=== PATIENT | female | born 1990 | race Caucasian/White ===

== ENCOUNTER 2016-11-13 18:41 | Emergency (ER) | payer OTHER ==
[2016-11-13] MEDS ORDERED: NS 0.9% 1000 ML* 2,000 ML IV ONE (21:39)
[2016-11-13] MEDS ORDERED: Ondansetron INJ* 2 MG/ML VIAL IV ONE (21:39)
[2016-11-13 22:00] LABS: Hematocrit 39 % (35-47); Hemoglobin 12.8 g/dl (12.0-16.0); Mean Corpuscular HGB Conc 33 g/dl (31-36); Mean Corpuscular Hemoglobin 29 pg (27-31); Mean Corpuscular Volume 87 fL (80-97); Mean Platelet Volume 8 um3 (7.4-10.4); Red Blood Count 4.44 10^6/ul (4.0-5.4); Red Cell Distribution Width 15 % (10.5-15); White Blood Count 7.1 10^3/ul (3.5-10.8)
[2016-11-13] MEDS ORDERED: Ketorolac INJ* 30 MG/ML 1 ML VIAL IV PUSH ONE (22:15)
[2016-11-13] MEDS ORDERED: Acetaminophen TAB* 325 MG PO ONE (22:15)
[2016-11-13 22:16] LABS: Calcium 8.1 mg/dL (8.6-10.3); EGFR African American 98.6 (>60); EGFR Non-African American 76.7 (>60); Potassium 3.1 mmol/L (3.5-5.0)
[2016-11-13] MEDS ORDERED: Potassium Chlor TAB* 20 MEQ TAB.ER PO ONE (23:07)
[2016-11-13 23:12] LABS: Body Fluid Appearance Clear
[2016-11-13 23:14] LABS: BF RBC Count #1 2; BF WBC Count #1 3
[2016-11-13 23:16] LABS: BF RBC Count #2 2; BF WBC Count #2 4; Body Fluid Appearance Clear; RBC counts within 6%? Yes; WBC counts within 15%? Yes
[2016-11-13 23:19] LABS: BF RBC Count #1 0; BF WBC Count #1 2
[2016-11-13 23:21] LABS: BF RBC Count #2 0; BF WBC Count #2 0; RBC counts within 6%? Yes; WBC counts within 15%? Yes
[2016-11-13 23:22] LABS: Body Fluid WBC 4 /mcL
[2016-11-13 23:23] LABS: Body Fluid Total Cells Counted 4
[2016-11-13 23:24] LABS: Body Fluid WBC 1 /mcL
[2016-11-13 23:25] LABS: Body Fluid Total Cells Counted 1
[2016-11-13 23:42] LABS: CSF Glucose 72 mg/dL (40-70)
[2016-11-14 00:50] VITALS: BP 94/69
--- NOTE | 2016-11-19 07:46 | ED ---
Jayne Junior Michael, scribed for Sean Esteves MD on 11/13/16 at 2222 . GI/ HPI - HPI Summary HPI Summary: 26 y/o female comes to the ED presenting with n/v/d this 1000 this morning. The pt reports a constant hour of vomiting this morning, and then the diarrhea started. She also c/o SHIELDS that radiates to the neck and lower back and a fever of 102 [employer]. Currently the fever is 100.8 since arriving to the ED. The neck pain is aggravated with head movement. The SHIELDS is rated a 9 out of 10 on a pain severity scale. The pt denies cough, sore throat, nasal discharge, CP, and SOB. The PMHx is significant for asthma. - History of Current Complaint Chief Complaint: EDNauseaVomitDiarrh Time Seen by Provider: 11/13/16 21:38 Stated Complaint: VOMITING/DIARRHEA/HEADACHE Hx Obtained From: Patient, Medical Records Onset/Duration: Started Hours Ago, Still Present Timing: Intermittent Severity: Moderate Current Severity: Moderate Pain Intensity: 8 - SHIELDS Associated Signs and Symptoms: Positive: Negative - cough, sore throat, nasal discharge, CP, and SOB., Back Pain, Nausea, Vomiting, Diarrhea, Fever, Other: - neck pain. SHIELDS. - Allergy/Home Medications Allergies/Adverse Reactions: Allergies Allergy/AdvReac Type Severity Reaction Status Date / Time Cephalexin [From Keflex] Allergy Mild Hives Verified 08/28/16 11:11 Meperidine [From Demerol HCl] Allergy Mild Hives Verified 08/28/16 11:11 PMH/Surg Hx/FS Hx/Imm Hx Endocrine/Hematology History: Denies: Hx Anticoagulant Therapy, Hx Diabetes, Hx Thyroid Disease Cardiovascular History: Denies: Hx Hypertension, Hx Pacemaker/ICD Respiratory History: Reports: Hx Asthma Denies: Hx Chronic Obstructive Pulmonary Disease (COPD) History: Denies: Hx Renal Disease Sensory History: Denies: Hx Hearing Aid Neurological History: Denies: Hx Dementia, Hx Seizures, Other Neuro Impairments/Disorders Psychiatric History: Denies: Hx Panic Disorder, Hx Substance Abuse - Surgical History Surgery Procedure, Year, and Place: T&A,2 LEFT ANKLE TO REPAIR TENDON, 1 RIGHT ANKLE TO REPAIR TENDON, CYST REMOVED FROM [facility] Infectious Disease History: No Infectious Disease History: Denies: Hx Clostridium Difficile, Hx Hepatitis, Hx Human Immunodeficiency Virus (HIV), Traveled Outside the [place] in Last 30 Days - Family History Known Family History: Positive: None Family History: Pt denies a significant FHx - Social History Occupation: Employed Full-time Lives: Alone Alcohol Use: None Substance Use Type: Reports: None Smoking Status (MU): Never Smoked Tobacco Have You Smoked in the Last Year: No Review of Systems Positive: Fever. Negative: Chills Negative: Erythema Negative: Sore Throat Negative: Chest Pain Negative: Shortness Of Breath, Cough Positive: Abdominal Pain, Vomiting, Diarrhea, Nausea Negative: dysuria, hematuria Positive: Other - back pain. neck pain.. Negative: Myalgia, Edema - bilat LE Negative: Rash Positive: Headache All Other Systems Reviewed And Are Negative: Yes Physical Exam - Summary Physical Exam Summary: Constitutional: Well-developed, Well-nourished, Alert. (-) Distressed Skin: Warm, Dry HENT: Normocephalic; Atraumatic, dry oral mucosa Eyes: Conjunctiva normal Neck: Musculoskeletal ROM normal neck. (-) JVD, (-) Stridor, (-) Tracheal deviation Cardio: Rhythm regular, rate normal, Heart sounds normal; Intact distal pulses; The pedal pulses are 2+ and symmetric. Radial pulses are 2+ and symmetric. (-) Murmur Pulmonary/Chest wall: Effort normal. (-) Respiratory distress, (-) Wheezes, (-) Rales Abd: Soft, epigastric tenderness, (-) Distension, (-) Guarding, (-) Rebound Musculoskeletal: (-) Edema Lymph: (-) Cervical adenopathy Neuro: Alert, Oriented x3 Psych: Mood and affect Normal mild meningismus Triage Information Reviewed: Yes Vital Signs On Initial Exam: Initial Vitals Temp Pulse Resp BP Pulse Ox 100.8 F 118 18 115/68 99 11/13/16 19:23 11/13/16 19:23 11/13/16 19:23 11/13/16 19:23 11/13/16 19:23 Vital Signs Reviewed: Yes Procedures - Lumbar Puncture Procedural Sedation: none Position: Lateral Decubitus Aseptic Technique: Lidocaine Anesthesia Used: 1.0% Lido Spinal Needle Used: 22 Gauge - 3.5 inch Lumbar Puncture Note: One attempt-clear fluid obtained. opening pressure was 17 cm. Diagnostics - Vital Signs Vital Signs Temp Pulse Resp BP Pulse Ox 11/13/16 19:23 100.8 F 118 18 115/68 99 - Laboratory Result Diagrams: 11/13/16 21:50 11/13/16 21:50 Lab Statement: Any lab studies that have been ordered have been reviewed, and results considered in the medical decision making process. GIGU Course/Dx - Course Course Of Treatment: 26 y/o female comes to the ED presenting with n/v/d this 1000 this morning. She also c/o fever, SHIELDS, neck pain, and back pain. Pt was consulted with possible side effects of a LP and she agrees to the procedure. - Diagnoses Provider Diagnoses: Gastroenteritis, Dehydration Discharge - Discharge Plan Condition: Improved Disposition: HOME Prescriptions: Ondansetron ODT TAB* [Zofran Odt TAB*] 4 mg PO Q8H PRN #15 tab.odt PRN Reason: Nausea/Vomiting Potassium Chlor TAB* [Potassium Chlor TAB 20 MEQ*] 20 meq PO BID #8 tab.er Patient Education Materials: Dehydration (ED), Gastroenteritis (ED) Forms: *Work Release Referrals: Channing MORE,Yemi Crawford [Primary Care Provider] - Additional Instructions: you will follow up with Dr. Snell within the next 2-3 days. Please return to the ED immediately if you experience any worsening symptoms. The documentation as recorded by the Jayne ellis Michael accurately reflects the service I personally performed and the decisions made by me, Sean Esteves MD.
== END 2016-11-14 00:48 | disposition home or self-care (01) ==
LOC: ED 18:41
DX: E86.0 Dehydration (principal); K52.9 Noninfective gastroenteritis and colitis, unspecified; R19.7 Diarrhea, unspecified; R51 Headache; R50.9 Fever, unspecified; M54.9 Dorsalgia, unspecified
CPT/HCPCS: 36415; 80048; 82945; 84157; 85027; 87070; 87205; 89051; 96361; 96374; 96375; 99283; A9270-GY; J1885; J2405

== ENCOUNTER 2017-09-01 06:34 | Emergency (ER) | payer SELFPAY ==
--- NOTE | 2017-09-01 08:25 | RAD ---
INDICATION: Left shoulder pain. TECHNIQUE: 4 views of the left shoulder were obtained. FINDINGS: The bones are in normal alignment. No fracture is seen. Joint spaces appear maintained. There is a large calcific deposit adjacent to the superior lateral aspect of the lateral head suggestive of calcific tendinitis. IMPRESSION: FINDINGS SUGGESTIVE OF CALCIFIC TENDINITIS.
[2017-09-01] MEDS ORDERED: Ketorolac INJ* 60 MG/2 ML VIAL IM ONE (08:43)
[2017-09-01 09:53] VITALS: BP 118/86
--- NOTE | 2017-09-01 18:40 | ED ---
Lino Junior Angela, scribed for Turner Mcnair MD on 09/01/17 at 0749 . Upper Extremity Pain - HPI Summary HPI Summary: This pt is a 27 y/[facility] pain s/p injury at work today. 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 Pt notes that the client started falling and pulled her left shoulder. Her pain is aggravated with movement. She denies weakness, numbness or tingling in UE. - History of Current Complaint Chief Complaint: EDShoulderClavicBernardo Stated Complaint: LEFT SHOULDER INJURY/PAIN Time Seen by Provider: 09/01/17 07:23 Hx Obtained From: Patient Hx Last Menstrual Period: 04/01/16 Mechanism Of Injury: Other - pulled arm Onset/Duration: Started Hours Ago, Still Present Timing: Lasting Hours Pain Location: Shoulder - left Aggravating Factor(s): Movement Alleviating Factor(s): Nothing Associated Signs & Symptoms: Negative: Weakness, Numbness/Tingling - Allergies/Home Medications Allergies/Adverse Reactions: Allergies Allergy/AdvReac Type Severity Reaction Status Date / Time Cephalexin [From Keflex] Allergy Mild Hives Verified 09/01/17 06:46 Meperidine [From Demerol HCl] Allergy Mild Hives Verified 09/01/17 06:46 PMH/Surg Hx/FS Hx/Imm Hx Endocrine/Hematology History: Denies: Hx Anticoagulant Therapy, Hx Diabetes, Hx Thyroid Disease Cardiovascular History: Denies: Hx Hypertension, Hx Pacemaker/ICD Respiratory History: Reports: Hx Asthma Denies: Hx Chronic Obstructive Pulmonary Disease (COPD) History: Denies: Hx Renal Disease Sensory History: Denies: Hx Hearing Aid Neurological History: Denies: Hx Dementia, Hx Seizures, Other Neuro Impairments/Disorders Psychiatric History: Denies: Hx Panic Disorder, Hx Substance Abuse - Surgical History Surgery Procedure, Year, and Place: T&A,2 LEFT ANKLE TO REPAIR TENDON, 1 RIGHT ANKLE TO REPAIR TENDON, CYST REMOVED FROM [facility] - Immunization History Date of Tetanus Vaccine: unk Date of Influenza Vaccine: 11/06/16 Infectious Disease History: No Infectious Disease History: Denies: Hx Clostridium Difficile, Hx Hepatitis, Hx Human Immunodeficiency Virus (HIV), Traveled Outside the US in Last 30 Days - Family History Family History: Pt denies a significant FHx - Social History Alcohol Use: None Substance Use Type: Reports: None Smoking Status (MU): Never Smoked Tobacco Have You Smoked in the Last Year: No Review of Systems Negative: Fever, Chills Eyes: Negative ENT: Negative Cardiovascular: Negative Respiratory: Negative Positive: Other - left shoulder pain Negative: Weakness, Paresthesia, Numbness All Other Systems Reviewed And Are Negative: Yes Physical Exam - Summary Physical Exam Summary: VITAL SIGNS: Reviewed. GENERAL: Patient is a well-developed and nourished female who is lying comfortable in the stretcher. Patient is not in any acute respiratory distress. HEAD AND FACE: No signs of trauma. No ecchymosis, hematomas or skull depressions. No sinus tenderness. EYES: PERRLA, EOMI x 2, No injected conjunctiva, no nystagmus. EARS: Hearing grossly intact. Ear canals and tympanic membranes are within normal limits. MOUTH: Oropharynx within normal limits. NECK: Supple, trachea is midline, no adenopathy, no JVD, no carotid bruit, no c- spine tenderness, neck with full ROM. CHEST: Symmetric, no tenderness at palpation LUNGS: Clear to auscultation bilaterally. No wheezing or crackles. CVS: Regular rate and rhythm, S1 and S2 present, no murmurs or gallops appreciated. ABDOMEN: Soft, non-tender. No signs of distention. No rebound no guarding, and no masses palpated. Bowel sounds are normal. EXTREMITIES: FROM in all major joints, no edema, no cyanosis or clubbing. There is no ecchymosis, no deformities and no hematomas. There is positive decreased ROM at left shoulder secondary to pain. NEURO: Alert and oriented x 3. No acute neurological deficits. Speech is normal and follows commands. SKIN: Dry and warm Triage Information Reviewed: Yes Vital Signs On Initial Exam: Initial Vitals Temp Pulse Resp BP Pulse Ox 98.4 F 85 16 132/82 98 09/01/17 06:41 09/01/17 06:41 09/01/17 06:41 09/01/17 06:41 09/01/17 06:41 Vital Signs Reviewed: Yes - Joshua Coma Scale Coma Scale Total: 15 Diagnostics - Vital Signs Vital Signs Temp Pulse Resp BP Pulse Ox 09/01/17 06:41 98.4 F 85 16 132/82 98 - Laboratory Lab Statement: Any lab studies that have been ordered have been reviewed, and results considered in the medical decision making process. - Radiology Left shoulder XR Xray Interpretation: Positive (See Comments) - IMPRESSION: Findings suggestive of calcific tendinitis. ED physician has reviewed this radiology report and agrees. Radiology Interpretation Completed By: Radiologist Re-Evaluation - Re-Evaluation First Eval Re-Evaluation Time: 09:35 Comment: I reviewed the XR results with the pt. She would like a work note. Course/Dx - Course Assessment/Plan: This pt is a 27 y/o female presenting to [facility] c/o left shoulder pain s/p injury at work today. 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 Pt notes that the client started falling and pulled her left shoulder. Her pain is aggravated with movement. She denies weakness, numbness or tingling in UE. XR of the right shoulder shows findings suggestive of calcific tendinitis. In the ED course, the pt was given Toradol for the pain. She will be discharged with follow up from her PCP and prescription for naproxen. Pt is hemodynamically stable, alert and oriented x3. - Diagnoses Differential Diagnosis/HQI/PQRI: Positive: Bursitis, Contusion, Fracture (Closed ), Strain, Sprain Provider Diagnoses: Calcific tendinitis of shoulder Discharge - Discharge Plan Condition: Stable Disposition: HOME Prescriptions: Naproxen [Naproxen 500 mg] 500 mg PO Q8H PRN #20 tab PRN Reason: Pain Patient Education Materials: Tendinitis (ED) Forms: *Work Release Referrals: Channing MORE,Yemi Crawford [Primary Care Provider] - Additional Instructions: Please follow up with your primary care provider. RETURN TO THE ED FOR ANY WORSENING SYMPTOMS. The documentation as recorded by the Lino ellis Angela accurately reflects the service I personally performed and the decisions made by me, Turner Mcnair MD.
== END 2017-09-01 09:52 | disposition home or self-care (01) ==
LOC: ED 06:34
DX: M75.32 Calcific tendinitis of left shoulder (principal); M25.512 Pain in left shoulder
CPT/HCPCS: 99282; J1885

== ENCOUNTER → 2018-01-08 08:39 | Day surgery (SDC) | payer OTHER ==
[~2018-01-08 08:39] MED LIST: Buffered Lidocaine 0.9% SYRIN* 5 ML/SYR SYRINGE INTRADERM ONE; Bupivacaine 0.5% SDV PF* 10-30ML VIAL ONE; Clindamycin 900 MG IVPREMIX(* 900 MG/50 ML SDV IV ONE; Dexamethasone IV* 4 MG/ML 1 ML (4 MG) ONE; DiMENhydriNATE IV* 50 MG/ML VIAL ONE; EPINEPHRINE 1 MG/ML 1 ML VIAL ONE; Ketorolac INJ* 30 MG/ML 1 ML VIAL IV PRN; Lidocaine 2% PF * 5 ML VIAL ONE; Midazolam* 1 MG/ML 2 ML VIAL (2 MG) ONE; Naloxone* 0.4 MG/ML 1 ML VIAL IV PRN; Ondansetron INJ* 2 MG/ML VIAL IV PRN; Ondansetron INJ* 2 MG/ML VIAL ONE; Propofol* 10 MG/ML 20 ML BTL IV PUSH ONE; ROPIVACAINE 5 MG/ML 30 ML BTL (0.5%) ONE; Sodium Citrate/Citric Acid* 15 ML UDC ONE; Sodium Citrate/Citric Acid* 15 ML UDC PO ONE; ceFAZolin 2 GM in 100 MLS NS (*) BAG IVPB ONE; fentaNYL* 50 MCG/ML 2 ML VIAL (100 MCG VIAL) IV PRN; fentaNYL* 50 MCG/ML 2 ML VIAL (100 MCG VIAL) ONE
--- NOTE | 2018-01-08 17:30 | RAD ---
Indication: Left shoulder pain. 2 views of left shoulder demonstrates no fracture. No other bone or joint abnormality is noted. IMPRESSION: No fracture of the left shoulder is noted.
[2018-01-08 18:53] VITALS: BP 132/86
--- NOTE | 2018-01-09 07:40 | RAD ---
INDICATION: Calcific tendinitis of left shoulder COMPARISONS: January 18, 2018 TECHNIQUE: Fluoroscopy was provided for a surgical procedure. Total fluoroscopy time is: 23 seconds FINDINGS: Spot images are submitted of the humeral head in an axillary projection IMPRESSION: FLUOROSCOPY WAS PROVIDED FOR A SURGICAL PROCEDURE CPT II Codes: 6045F
--- NOTE | 2018-01-10 00:48 | OP ---
DATE OF OPERATION: 01/08/18 - [facility] DATE OF : 89 SURGEON: Homer Romero MD LIBRARY SCIENCE INSTRUCTOR: LINWOOD Barajas. A physician school health assistant was required for the length of the procedure for positioning, retraction, instrumentation, and closure. ANESTHESIOLOGIST: Korey Forde DO ANESTHESIA: General anesthesia, regional anesthesia, interscalene block, local anesthesia, approximately 10 cc of Marcaine 0.5% without epinephrine about the biceps open skin incision site. PRE-OP DIAGNOSES: 1. Left shoulder calcific rotator cuff tendonitis. 2. Possible left shoulder superior labral tear. POST-OP DIAGNOSES: 1. Left shoulder calcific rotator cuff tendonitis versus avulsion fracture, rotator cuff tendon tear, supraspinatus. 2. Left shoulder superior labral tear, unstable. OPERATIVE PROCEDURES: 1. Left shoulder arthroscopic rotator cuff repair, supraspinatus, high-grade partial thickness bursal side supraspinatus. 2. Left shoulder arthroscopic removal of calcification within supraspinatus tendon. 3. Left shoulder limited debridement arthroscopic including release of biceps tendon. 4. Left shoulder open proximal biceps tenodesis, subpectoral. ANTIBIOTICS: Clindamycin 900 mg IV. IV FLUIDS: 1400 cc crystalloid. COMPLICATIONS: None. SPECIMEN: None. IMPLANTS: Gryphon 5.5 mm anchor, triple loaded, from [employer]. Arthrex proximal biceps button, unicortical. ESTIMATED BLOOD LOSS: Minimal. 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 The patient was diagnosed by me in clinic as having calcific rotator cuff tendonitis. She was treated with a subacromial cortisone injection, Medrol Dosepak. Her exam also worried me for a possible posterolabral tear. The patient tried to return to work on 12/02/17; but at the end of shift, could barely lift her arm. I next treated her with another Medrol Dosepak and another excuse from work note. The patient's symptoms were significant in preventing her from working. MRI preoperatively showed a large calcification within the supraspinatus tendon distally. Sagittal slices also demonstrated a little defect in the humeral head. So, this could conceivably have been a bony avulsion fracture, pulled off by a partial-thickness rotator cuff, supraspinatus. However, the presumptive diagnosis was calcific rotator cuff tendonitis. MRI also showed possible superior labrum tear. No posterior labrum tear by MRI. The patient decided on surgery having failed nonoperative management. I discussed risks and potential complications with the patient including bleeding , infection, nerve or blood vessel injury, shoulder stiffness, pain, rotator cuff tear, retear. DESCRIPTION OF PROCEDURE: Preoperatively, in preoperative holding, the patient signed a written consent. Operative extremity was marked in preoperative holding. Anesthesiologist came in and performed an interscalene regional nerve block. The patient had described some difficulties with Betadine and ChloraPrep in the past, but they were all skin reactions, localized only to the location that those agents were used over and presenting a day or so after, so we did not believe these to be true systemic allergic reaction and we decided to use ChloraPrep. The patient was taken to the operating room and placed supine on the operating room table. General anesthesia was induced. The patient was then converted to the left lateral decubitus position. Axillary roll. All bony prominences padded. A beanbag was hardened. Left arm placed in the appropriate longitudinal traction, abduction, forward flexion, with 15 pounds of traction. The left shoulder was prepped and draped. Surgical time-out was performed. The left shoulder glenohumeral joint was entered from posterior with a spinal needle. A 30 cc of normal saline were infused. The glenohumeral joint was then entered from posterior with an arthroscope. I did a diagnostic arthroscopy or started one. No undersurface supraspinatus tear. No subscapularis or infraspinatus tears visible. Long head of biceps tendon looked normal. There was a question of a superior labral tear. No anterior or posterior labral tear. No articular cartilage defects of the glenoid or humeral head. Anterior glenohumeral joint portal was established under direct visualization. Arthroscopic probe was entered and was used to probe the superior labrum as well as the biceps. There appeared to be a clear superior labral tear with some lift-off of 5 mm of the superior labrum. The decision was therefore made to treat the superior labrum with an open biceps tenodesis. The patient and I preoperatively had discussed either biceps release or open biceps tenodesis. She left the decision to me and I decided given the patient' s young age to tenodesis. Arthroscopic scissors were used to cut the biceps near its origin. Arthroscopic shaver was used to smooth out the superior labrum. The superior labrum tissue was not flopping into the joint and no requirement was there to place a suture anchor. I exited the glenohumeral joint and entered the subacromial space from posterior and anterior. I created a lateral subacromial portal under direct visualization. I debrided some bursitis in the subacromial space using arthroscopic shaver. I visualized the rotator cuff from posterior and then from a newly established posterolateral portal as well as from the lateral portal. Initially, no significant defect on the bursal side of the rotator cuff was appreciated. I likely probed the tissue with an arthroscopic probe and there did seem to be clearly some diseased tissue and some small amount of tearing in the supraspinatus, mid portion. I simply used that arthroscopic probe as well as a switching stick to likely probe inside of the supraspinatus tendon. The arthroscopic probe encountered a clear hard bodies, likely calcifications. As well, when I did the probing, wisps of calcification were exiting the tendon, consistent with a calcification present in rotator cuff calcific tendonitis. There was a clearly more palpable hard bodies within the supraspinatus that were no able to be evacuated with this probing and with an arthroscopic shaver presented along the superior border at the supraspinatus tendon. Therefore, I opened the supraspinatus tendon using an 11 blade, entered through the posterolateral portal, and I incised in line with the fibers of the supraspinatus, very careful. This allowed better exposure of the mid substance of the supraspinatus where much calcification was present. This was removed using arthroscopic problem, switching stick, arthroscopic shaver. When the calcification was removed, there was clearly a high grade defect in the supraspinatus. This was clearly greater than 33% of the width at the tendon, a commonly used indication, guiding line for rotator cuff repair. I, therefore, had decided to do a rotator cuff repair. It did not seem that there are any additional calcifications that were present within the tendon despite my probing throughout. Therefore, I next prepared the footprint with an arthroscopic philippe to create a nice bony healing site. Through a superolateral portal, I placed a triple-loaded 5.5 mm Mitek Gryphon suture anchor. I completed the tear with an arthroscopic shaver just towards the middle most mid point of the partial-thickness tear to aid in repair. I placed 3 horizontal mattress stitches using a [place]ha and [employer] self retrieving suture passer. I passed all sutures before time. With movement of the humerus in rotation and with probing with my arthroscopic probe, the repair appeared stable. Therefore, I decided that a lateral row anchor was not required. I viewed the repair from several different portals. Given the patient's young age and lack of significant sprain, I had preoperatively decided not to do a subacromial decompression or distal clavicle resection and nothing convinced me otherwise intraoperatively. I removed instruments and fluid from the subacromial space. We next closed the incision sites with [id number] and 12 stitches using nylon 4-0 suture. The beanbag was softened and the patient was converted to a supine position. Anesthesia watched the head and neck closely. Beanbag was reinflated with the patient in the supine position. I made a short longitudinal incision over the proximal anteromedial upper arm, approximately 4 cm in length. This was centered just distal to the inferior aspect of the pectoralis major tendon. I dissected down to that tendon and followed it to the bicipital groove. Retractors placed. Long head of the biceps tendon harvested. Pin placed in bone. Appropriate site of tenodesis marked on the tendon with a marking pen. Three stitches placed in the biceps tendon with FiberLoop suture. Button was loaded and then passed into the humerus. Knot tied. A free needle was used to pass another suture through the tendon and another knot tied. Excess suture cut. Excess tendon cut. Irrigation. Closure of the subcutaneous tissue with buried simple stitches using Vicryl 3-0 suture. Closure of the subcuticular layer with a running stitch using Monocryl 4-0 suture. Mastisol and Steri-Strips over the biceps incision site. Also, 10 cc of 0.5% Marcaine about that incision site. Xeroform over the arthroscopic skin incisions. 4x4s, ABDs. Foam tape. UltraSling and Akila unit provided. DISPOSITION: The patient was discharged home. She will follow up with me in the office in 10 to 14 days post-operatively. She will start physical therapy immediately. She was given Percocet as needed for pain control and Bactrim for infection prophylaxis. [id number]/[facility] #: [id number] [facility]
== END | disposition home or self-care (01) ==
LOC: OR 08:39
PROVIDERS: ATTEND Orthopaedic Surgery
DX: M75.112 Incomplete rotator cuff tear or rupture of left shoulder, not specified as traumatic (principal); S43.492A Other sprain of left shoulder joint, initial encounter; M75.32 Calcific tendinitis of left shoulder; X58.XXXA Exposure to other specified factors, initial encounter; Y93.89 Activity, other specified; Y92.129 Unspecified place in nursing home as the place of occurrence of the external cause; Y99.0 Civilian activity done for income or pay; J45.909 Unspecified asthma, uncomplicated; Z87.891 Personal history of nicotine dependence; G89.18 Other acute postprocedural pain
CPT/HCPCS: 76000; 81025; A9270-GY; C1776; J1100; J1240; J2250; J2405; J2704; J2795; J3010

== ENCOUNTER 2018-02-13 04:09 | Emergency (ER) | payer OTHER ==
[2018-02-13] MEDS ORDERED: Ketorolac INJ* 30 MG/ML 1 ML VIAL IV PUSH ONE (04:14)
[2018-02-13] MEDS ORDERED: predniSONE TAB* 20 MG PO ONE (04:14)
[2018-02-13] MEDS ORDERED: NS 0.9% 1000 ML* 1,000 ML IV ONE ×2 (04:14→04:15)
[2018-02-13 04:54] LABS: ABS Basophils 0 10^3/ul (0-0.2); ABS Eosinophils 0.1 10^3/ul (0-0.6); ABS Lymphocytes 1.3 10^3/ul (1.0-4.8); ABS Monocytes 0.8 10^3/ul (0-0.8); ABS Neutrophils 6.6 10^3/ul (1.5-7.7); ABS Nucleated RBC 0 10^3/ul; Eosinophil % 0.6 % (0-6); Hematocrit 37 % (35-47); Hemoglobin 12.6 g/dl (12.0-16.0); Lymphocyte % 14.3 % (25-47); Mean Corpuscular HGB Conc 34 g/dl (31-36); Mean Corpuscular Hemoglobin 31 pg (27-31); Mean Corpuscular Volume 89 fL (80-97); Nucleated Red Blood Cells % 0; Platelet Count 331 10^3/ul (150-450); Red Blood Count 4.11 10^6/ul (4.0-5.4); Red Cell Distribution Width 14 % (10.5-15); White Blood Count 8.8 10^3/ul (3.5-10.8)
[2018-02-13 05:13] LABS: EGFR Non-African American 92.7 (>60)
[2018-02-13] MEDS ORDERED: Acetaminophen TAB* 325 MG PO ONE (06:16)
[2018-02-13] MEDS ORDERED: Iohexol 350* (CONTRAST) 500 ML MDV IV ONE (06:16)
[2018-02-13 06:33] LABS: Urine Appearance Cloudy; Urine Blood Negative (Negative); Urine Color Yellow; Urine Ketones Negative (Negative); Urine Protein Negative (Negative); Urine Specific Gravity 1.021 (1.010-1.030); Urine Urobilinogen Negative (Negative)
--- NOTE | 2018-02-13 07:06 | ED ---
Juaquin Junior Tecjoon, scribed for Markos Kothari MD on 02/13/18 at 0422 . Shortness of Breath - HPI Summary HPI Summary: This patient is a 27 year old female BIBA to [facility] with a chief complaint of dyspnea since approx. 24 hours ago. The pain is rated 4/10 in severity. Symptoms aggravated by nothing. Symptoms alleviated by nothing. Patient additionally reports fever, chills, chest pain, cough. Patient states that she feels slightly better and wheezing went away after EMS breathing treatment. Patient states she received her flu shot this year. - History of Current Complaint Chief Complaint: EDShortnessOfBreath Time Seen by Provider: 02/13/18 04:13 Hx Obtained From: Patient Onset/Duration: Still Present Dyspnea At: Rest Aggrevating Factors: Nothing Alleviating Factors: Nothing - Allergy/Home Medications Allergies/Adverse Reactions: Allergies Allergy/AdvReac Type Severity Reaction Status Date / Time povidone-iodine Allergy Intermediate Hives Verified 02/13/18 05:27 cephalexin Allergy Mild Hives Verified 02/13/18 05:27 meperidine Allergy Mild Hives Verified 02/13/18 05:27 PMH/Surg Hx/FS Hx/Imm Hx Previously Healthy: Yes Endocrine/Hematology History: Denies: Hx Anticoagulant Therapy, Hx Diabetes, Hx Thyroid Disease Cardiovascular History: Denies: Hx Hypertension, Hx Pacemaker/ICD Respiratory History: Reports: Hx Asthma - sports induced Denies: Hx Chronic Obstructive Pulmonary Disease (COPD) History: Denies: Hx Renal Disease Sensory History: Denies: Hx Contacts or Glasses, Hx Hearing Aid Opthamlomology History: Denies: Hx Contacts or Glasses Neurological History: Reports: Hx Migraine - hx of- last one 6 months ago Denies: Hx Dementia, Hx Seizures, Other Neuro Impairments/Disorders Psychiatric History: Denies: Hx Panic Disorder, Hx Substance Abuse - Cancer History Hx Chemotherapy: No - Surgical History Surgery Procedure, Year, and Place: T&A,2 LEFT ANKLE TO REPAIR TENDON, 1 RIGHT ANKLE TO REPAIR TENDON, CYST REMOVED FROM CHIN. TUBAL LIGATION-ABLASION- APPENDIX 12/2016 Hx Anesthesia Reactions: No - Immunization History Date of Tetanus Vaccine: unk Date of Influenza Vaccine: 11/06/16 Infectious Disease History: No Infectious Disease History: Denies: Hx Clostridium Difficile, Hx Hepatitis, Hx Human Immunodeficiency Virus (HIV), Traveled Outside the [place] in Last 30 Days - Family History Known Family History: Negative: Hypertension - Social History Occupation: Employed Full-time Alcohol Use: None Hx Substance Use: No Substance Use Type: Reports: None Hx Tobacco Use: Yes Smoking Status (MU): Former Smoker Amount Used/How Often: smoked for 2-3 years 1/2ppd Have You Smoked in the Last Year: No Review of Systems Positive: Fever, Chills Positive: Chest Pain Positive: Shortness Of Breath, Cough All Other Systems Reviewed And Are Negative: Yes Physical Exam - Summary Physical Exam Summary: Appearance: Well appearing, no pain distress Skin: warm, dry, reflects adequate perfusion Head/face: normal Eyes: EOMI, DMITRI ENT: clear nasal discharge Neck: supple, non-tender Respiratory: CTA, breath sounds present Cardiovascular: heart tachycardic, but regular Abdomen: non-tender, soft Bowel Sounds: present Musculoskeletal: normal, strength/ROM intact Neuro: normal, sensory motor intact, A&Ox3 Triage Information Reviewed: Yes Vital Signs On Initial Exam: Initial Vitals Temp Pulse Resp BP Pulse Ox 101.8 F 138 18 94/73 100 02/13/18 04:11 02/13/18 04:11 02/13/18 04:11 02/13/18 04:11 02/13/18 04:11 Vital Signs Reviewed: Yes Diagnostics - Vital Signs Vital Signs Temp Pulse Resp BP Pulse Ox 02/13/18 04:11 101.8 F 138 18 94/73 100 - Laboratory Lab Results: Lab Results 02/13/18 02/13/18 02/13/18 Range/Units 04:35 04:35 04:35 WBC 8.8 (3.5-10.8) 10^3/ul RBC 4.11 (4.0-5.4) 10^6/ul Hgb 12.6 (12.0-16.0) g/dl Hct 37 (35-47) % MCV 89 (80-97) fL MCH 31 (27-31) pg MCHC 34 (31-36) g/dl RDW 14 (10.5-15) % Plt Count 331 (150-450) 10^3/ul MPV 8.0 (7.4-10.4) um3 Neut % (Auto) 75.8 (38-83) % Lymph % (Auto) 14.3 L (25-47) % [place]upe % (Auto) 8.8 H (0-7) % Eos % (Auto) 0.6 (0-6) % Baso % (Auto) 0.5 (0-2) % Absolute Neuts (auto) 6.6 (1.5-7.7) 10^3/ul Absolute Lymphs (auto) 1.3 (1.0-4.8) 10^3/ul Absolute Monos (auto) 0.8 (0-0.8) 10^3/ul Absolute Eos (auto) 0.1 (0-0.6) 10^3/ul Absolute Basos (auto) 0 (0-0.2) 10^3/ul Absolute Nucleated RBC 0 10^3/ul Nucleated RBC % 0 D-Dimer, Quantitative (Less Than 230) ng/mL Sodium 137 L (139-145) mmol/L Potassium 3.7 (3.5-5.0) mmol/L Chloride 109 (101-111) mmol/L Carbon Dioxide 20 L (22-32) mmol/L Anion Gap 8 (2-11) mmol/L BUN 9 (6-24) mg/dL Creatinine 0.75 (0.51-0.95) mg/dL Est GFR ( Amer) 119.2 (>60) Est GFR (Non-Af Amer) 92.7 (>60) BUN/Creatinine Ratio 12.0 (8-20) Glucose 116 H (70-100) mg/dL Lactic Acid 1.9 (0.5-2.0) mmol/L Calcium 8.9 (8.6-10.3) mg/dL Total Bilirubin 0.20 (0.2-1.0) mg/dL AST 15 (13-39) U/L ALT 14 (7-52) U/L Alkaline Phosphatase 48 (34-104) U/L C-Reactive Protein 11.45 H (< 5.00) mg/L Total Protein 6.6 (6.4-8.9) g/dL Albumin 3.8 (3.2-5.2) g/dL Globulin 2.8 (2-4) g/dL Albumin/Globulin Ratio 1.4 (1-3) Urine Color Urine Appearance Urine pH (5-9) Ur Specific Stonewall (1.010-1.030) Urine Protein (Negative) Urine Ketones (Negative) Urine Blood (Negative) Urine Nitrate (Negative) Urine Bilirubin (Negative) Urine Urobilinogen (Negative) Ur Leukocyte Esterase (Negative) Urine WBC (Auto) (Absent) Urine RBC (Auto) (Absent) Ur Squamous Epith Cells (Absent) Urine Bacteria (Absent) Urine Glucose (Negative) Influenza A (Rapid) (Negative) Influenza B (Rapid) (Negative) 02/13/18 02/13/18 02/13/18 Range/Units 04:35 04:37 05:52 WBC (3.5-10.8) 10^3/ul RBC (4.0-5.4) 10^6/ul Hgb (12.0-16.0) g/dl Hct (35-47) % MCV (80-97) fL MCH (27-31) pg MCHC (31-36) g/dl RDW (10.5-15) % Plt Count (150-450) 10^3/ul MPV (7.4-10.4) um3 Neut % (Auto) (38-83) % Lymph % (Auto) (25-47) % [place] % (Auto) (0-7) % Eos % (Auto) (0-6) % Baso % (Auto) (0-2) % Absolute Neuts (auto) (1.5-7.7) 10^3/ul Absolute Lymphs (auto) (1.0-4.8) 10^3/ul Absolute Monos (auto) (0-0.8) 10^3/ul Absolute Eos (auto) (0-0.6) 10^3/ul Absolute Basos (auto) (0-0.2) 10^3/ul Absolute Nucleated RBC 10^3/ul Nucleated RBC % D-Dimer, Quantitative 246 H (Less Than 230) ng/mL Sodium (139-145) mmol/L Potassium (3.5-5.0) mmol/L Chloride (101-111) mmol/L Carbon Dioxide (22-32) mmol/L Anion Gap (2-11) mmol/L BUN (6-24) mg/dL Creatinine (0.51-0.95) mg/dL Est GFR ( Amer) (>60) Est GFR (Non-Af Amer) (>60) BUN/Creatinine Ratio (8-20) Glucose (70-100) mg/dL Lactic Acid (0.5-2.0) mmol/L Calcium (8.6-10.3) mg/dL Total Bilirubin (0.2-1.0) mg/dL AST (13-39) U/L ALT (7-52) U/L Alkaline Phosphatase (34-104) U/L C-Reactive Protein (< 5.00) mg/L Total Protein (6.4-8.9) g/dL Albumin (3.2-5.2) g/dL Globulin (2-4) g/dL Albumin/Globulin Ratio (1-3) Urine Color Yellow Urine Appearance Cloudy Urine pH 8.0 (5-9) Ur Specific Stone[place] 1.021 (1.010-1.030) Urine Protein Negative (Negative) Urine Ketones Negative (Negative) Urine Blood Negative (Negative) Urine Nitrate Negative (Negative) Urine Bilirubin Negative (Negative) Urine Urobilinogen Negative (Negative) Ur Leukocyte Esterase Trace A (Negative) Urine WBC (Auto) Trace(0-5/hpf) (Absent) Urine RBC (Auto) Trace(0-2/hpf) (Absent) Ur Squamous Epith Cells Present A (Absent) Urine Bacteria Absent (Absent) Urine Glucose Negative (Negative) Influenza A (Rapid) Negative (Negative) Influenza B (Rapid) Negative (Negative) Result Diagrams: 02/13/18 04:35 02/13/18 04:35 Lab Statement: Any lab studies that have been ordered have been reviewed, and results considered in the medical decision making process. - Radiology CXR Xray Interpretation: No Acute Changes - CXR reveals, per radiologist, IMPRESSION : NO ACUTE PROCESS. ED physician has reviewed this radiology report. Radiology Interpretation Completed By: Radiologist Course/Dx - Course Course Of Treatment: Patient will be signed out to Dr. Bryant at end of shift , awaiting CT. Pt with apparent viral syndrome -- fever, cough, R sided CP and runny nose. Neg flu and CXR. Ddimer elevated. CT pending. Signed out to oncoming physician. - Diagnoses Provider Diagnoses: Hypoxia Discharge - Sign-Out/Discharge Documenting (check all that apply): Sign-Out Patient Signing out patient TO: Juancarlos Bryant - Discharge Plan Condition: Stable Disposition: ADMITTED TO [facility] Referrals: Channing MORE,Yemi Crawford [Primary Care Provider] - - Billing Disposition and Condition Condition: STABLE Disposition: [facility] [place] The documentation as recorded by the Juaquin ellis Tecjoon accurately reflects the service I personally performed and the decisions made by me, Markos Kothari MD.
--- NOTE | 2018-02-13 08:20 | RAD ---
INDICATION: Hypoxia and right-sided chest pain COMPARISON: None TECHNIQUE: Axial source images were acquired following the administration of 69 mL Omnipaque [address] angiographic technique. Coronal and sagittal reconstructed images were constructed and reviewed. FINDINGS: There there are no filling defects in the pulmonary arteries to indicate acute pulmonary embolic disease. There are no focal infiltrates or effusions. There are no pulmonary parenchymal masses. The heart is normal in size. There is no evidence of pericardial effusion. There is no evidence of aortic aneurysm or dissection. There is no mediastinal, hilar, or axillary lymphadenopathy. The visualized osseous structures appear normal. Limited views of the upper abdomen show no abnormalities. IMPRESSION: No CT of evidence of pulmonary embolism.
[2018-02-13] MEDS ORDERED: Azithromycin IV(*) 500 MG in NS 0.9% 250 ML* 250 ML IVPB ONE (08:24)
[2018-02-13] MEDS ORDERED: Albuterol/Ipratropium NEB.SOL* Albuterol 2.5 MG/Ipratropium 0.5 MG 3 ML INH ONE (08:24)
--- NOTE | 2018-02-13 08:44 | RAD ---
INDICATION: Cough and shortness of breath COMPARISON: Chest x-ray dated May 29, 2005 TECHNIQUE: PA and lateral views of the chest were obtained. FINDINGS: The heart and mediastinum are normal in size and contour. The lungs are grossly clear. There is no evidence of large pleural effusion. Visualized bones are normal for the patient's age. There is no radiographic evidence of free air beneath the diaphragm IMPRESSION: No radiographic evidence of acute cardiopulmonary disease.
--- NOTE | 2018-02-13 09:35 | ED ---
Melisa Junior Jason, scribed for Jauncarlos Bryant MD on 02/13/18 at 0922 . Progress - Progress Note Progress Note: This patient was signed out from Dr. Kothari, pending disposition, awaiting Chest/Thorax CTA. Dr. Bryant discussed CTA results and admission with patient and started IV antibiotics. The hospitalist will be consult the patient for admission. Dr. Ortiz (Hospitalist) consulted the patient and decided to discharge pt home to follow up with PCP. Patient is agreeable with this plan. - Results/Orders Results/Orders: Chest/Thorax CTA reveals, per radiologist No CT of evidence of pulmonary embolism. ED physician has reviewed this radiology report. An EKG at 0715 reveals Sinus tachycardia at 100 bpm, normal ST, and no ectopy. Course/Dx - Course Course Of Treatment: IMPROVED IN ED. DISCUSSED ADMISSION WITH THE PATIENT. HOSPITALIST CONSULTED. DR ORTIZ SAW THE PATIENT IN THE ED. DISCHARGE HOME. F/U PMD; RETURN IF WORSE. - Diagnoses Provider Diagnoses: Hypoxia Discharge - Sign-Out/Discharge Documenting (check all that apply): Discharge - Discharge Plan Condition: Stable Disposition: HOME Prescriptions: Albuterol HFA INHALER* [Ventolin HFA Inhaler*] 2 puff INH Q4H PRN #1 mdi PRN Reason: Wheezing Azithromycin 250 mg PO DAILY #4 tablet Fluticasone-Salmeterol 100-50* [Advair Diskus 100-50*] 1 puff INH BID #1 diskus predniSONE TAB* [Deltasone TAB*] 40 mg PO DAILY #8 tab Patient Education Materials: Acute Bronchitis (ED), Bronchospasm (ED), Wheezing (ED) Referrals: Channing MORE,Yemi Crawford [Primary Care Provider] - Additional Instructions: FOLLOW UP WITH YOUR DOCTOR. RETURN TO THE EMERGENCY DEPARTMENT FOR ANY WORSENING OF YOUR CONDITION; PAIN, SHORTNESS OF BREATH, YOU FEEL ILL OR QUESTIONS OR CONCERNS. - Billing Disposition and Condition Condition: STABLE Disposition: HOME The documentation as recorded by the Melisa ellis Jason accurately reflects the service I personally performed and the decisions made by , Juancarlos Bryant MD.
[2018-02-13 10:00] VITALS: BP 99/60
--- NOTE | 2018-02-13 11:23 | CONS ---
CC: Dr. Bryant, Dr. Snell. CONSULTATION REPORT: DATE OF CONSULT: 02/13/18 PRIMARY CARE PROVIDER: Dr. Snell. PHYSICIAN REQUESTING THE CONSULT: Dr. Bryant from emergency department. CHIEF COMPLAINT: Shortness of breath. HISTORY OF PRESENT ILLNESS: Christina Kendall is a 27-year-old female with history of asthma who prese nted with asthma exacerbation. Patient stated that she woke up in the middle of the night feeling th at she cannot breathe and "an elephant is sitting on her chest." When she presented to the emergency department, apparently she was wheezing. She was treated with steroids, nebulizer treatments and az ithromycin and she is markedly improved. Upon reevaluation in 30 minutes, she also had hypoxemia by the report I got from the emergency department physician. Currently, she is with oxygen saturation of 97% on room air. The consultation was in regards of patient's need for admission for asthma exacerbation. PAST MEDICAL HISTORY: 1. History of asthma, on albuterol and Symbicort inhalers on a p.r.n. basis only. 2. History of bilateral ankle tendon repair. 3. History of left shoulder tendinitis with most recent surgery for rotator cuff in December of 2017. 4. History of endometriosis. 5. Status post tubal ligation 6. History of tonsillectomy and adenoidectomy. CURRENT MEDICATIONS: 1. Albuterol on a p.r.n. basis. 2. Symbicort on a p.r.n. basis. ALLERGIES: Include CEPHALEXIN and MEPERIDINE. FAMILY HISTORY: Positive for mother with ovarian cancer and thyroid problems. SOCIAL HISTORY: Patient smoked for a short period of time in the past. She is currently not smoking . She denies any alcohol or drug use. 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 She lives with 2 of her children, 3-year-old and 8-year-old. Her surrogate is her mother, Jil Shafer. REVIEW OF SYSTEMS: Please see history of present illness. In addition to above mentioned, patient s tated that she has been having "runny nose and sore throat" for the past 4 days. She denies fevers. She has been coughing, but the cough had been nonproductive. She denies chest pain. She stated matthew t she gets asthma attacks approximately 3 times a week. She also has history of exercise-induced ast hma. She had not used any daily inhaler on scheduled basis in the past. All the remaining 12 systems were reviewed with the patient and were otherwise negative. PHYSICAL EXAM: Blood pressure of 109/66; heart rate of 93 and regular; respiratory rate is 19;, oxyg en saturation 96% on room air; temperature of 100.3, was 101.8 at presentation to the ED. General: Patient is a pleasant 27-year-old female who is in no acute distress. Awake, alert, oriented x3. HE ENT: Head: Atraumatic, normocephalic. Eyes: Pupils are equal, reactive to light and accommodation . Oropharynx: Pharyngeal arches are mildly injected. There are no exudates noted. Mucosa moist. Ne ck: Supple. No JVD. No bruits bilaterally. Cardiovascular: Regular rate and rhythm. No murmurs. Respiratory: Clear to auscultation bilaterally. Abdomen: Soft, nontender. Bowel sounds are prese nt in all 4 quadrants. Lower Extremities: There is no edema. +2 pulses bilaterally. No clubbing o r cyanosis. Evaluation of the skin, no ecchymotic areas or rashes noted. Neuro Exam: Cranial nerves II through XII grossly intact. Motor strength is 5/5 bilaterally. Psychiatric Evaluation: Patient appears mildly anxious. No evidence of depression. DIAGNOSTIC STUDIES/LABORATORY DATA: Showed flu test that was negative. Urinalysis, trace esterase. Sodium 137, potassium 3.7, chloride 109, carbon dioxide 20, BUN 9, creatinine 0.7. Liver function is unremarkable. C-reactive protein of 11.4. D-dimer was 246. White blood cell count 0.8, hemoglobin of 12.6, hematocrit of 37, platelets of 331. CT angiogram of the test, impression: "No CT evidence of pulmonary embolism." Patient's EKG showed sinus tachycardia with no ST changes. ASSESSMENT AND PLAN: 1. Asthma exacerbation. At this point, after current treatment in the emergency department, patient no longer is wheezing. She did have fever when she was brought into the emergency department. The suspicion is likely patient has a viral infection. Azithromycin would be a good treatment for patien t's upper respiratory infection that will cover any bacteria in case it is bacterial infection and if it were to be just viral infection, can be used for antiinflammatory properties. 2. At this point, patient is not hypoxemic. She has no marked leukocytosis and no respiratory compr omise on evaluation. At this point, I discussed with the patient and offered her stay overnight in [facility], but I also informed her that she may probably will do as well at home with treatment with antibiotics, steroids, and is on nebulizers and inhalers. I also informed her that due to her persi stent asthma, she should be on inhaler for asthma prevention on a daily basis and Advair was recommen ded. The case was discussed with Dr. Bryant who agreed with the recommendations. Patient likely i s going to be discharged home by Dr. Bryant. TIME SPENT: Approximately 62 minutes was spent on the consultation of this patient, more than half t hat time was spent face to face with the patient during the interview and physical exam. Thank you very much for allowing me to see your patient in consultation. [id number]/[facility] #: [id number]
== END 2018-02-13 10:13 | disposition home or self-care (01) ==
LOC: ED 04:09
DX: R09.02 Hypoxemia (principal); Z87.891 Personal history of nicotine dependence
CPT/HCPCS: 36415; 71046; 71275; 80053; 81003; 81015; 83605; 85025; 85379; 86140; 87040; 87086; 87502; 93005; 94640; 96360; 96374; 99283; A9270-GY; J0456; J1885; J7512; Q9967

== ENCOUNTER 2019-02-13 03:34 | Emergency (ER) | payer OTHER ==
[2019-02-13 05:02] LABS: Urine Appearance Cloudy; Urine Bacteria Absent (Absent); Urine Bilirubin Negative (Negative); Urine Blood 2+ (Negative); Urine Color Yellow; Urine Glucose Negative (Negative); Urine Ketones Negative (Negative); Urine Nitrite Negative (Negative); Urine Protein Negative (Negative); Urine Red Blood Cell Absent (Absent); Urine Specific Gravity 1.012 (1.010-1.030); Urine Squamous Epithelial Cell Present (Absent); Urine Urobilinogen Negative (Negative); Urine White Blood Cell Trace(0-5/hpf) (Absent)
--- NOTE | 2019-02-13 06:02 | ED ---
Abdominal Pain/Female - HPI Summary HPI Summary: He is a 28-year-old female with a history of PCOS, endometriosis and tubal ligation presenting to the ED with right lower quadrant pain. History of appendectomy. She states the pain has increased in intensity over the past 6-8 hours. She has been not using any fatw-miv-ivsyvxg medication for relief. She states this feels the same as when she has had ovarian cysts. She does have a history of ovarian and endometrial cyst with subsequent surgeries. Since her tubal ligation, she has not had abdominal pain. She also endorses one episode of a small amount of bleeding and has not had vaginal bleeding since her tubal ligation 2 years ago. She is not currently on control. Denies fevers, sweats, chills. Denies any nausea, vomiting. Denies any back pain or urinary symptoms. Symptoms are not aggravated or alleviated with positioning, rest her medications. - History of Current Complaint Chief Complaint: EDAbdPain Stated Complaint: "RIGHT SIDE PAIN/SOB" PER PT Time Seen by Provider: 02/13/19 05:44 Hx Obtained From: Patient Hx Last Menstrual Period: 04/01/16 ?: No Onset/Duration: Sudden Onset Timing: Constant Severity Initially: Moderate Severity Currently: Moderate Pain Intensity: 10 Pain Scale Used: 0-10 Numeric Location: Discrete At: RLQ Radiates: No Character: Cramping Aggravating Factor(s): Nothing Alleviating Factor(s): Nothing Associated Signs and Symptoms: Positive: Negative Allergies/Adverse Reactions: Allergies Allergy/AdvReac Type Severity Reaction Status Date / Time povidone-iodine Allergy Intermediate Hives Verified 02/13/19 03:44 cephalexin Allergy Mild Hives Verified 02/13/19 03:44 meperidine Allergy Mild Hives Verified 02/13/19 03:44 Home Medications: Home Medications Fluticasone/Vilanterol MDI(NF) [Breo Ellipta MDI 200/25(NF)] 1 puff INH BID [History Confirmed 02/13/19] PMH/Surg Hx/FS Hx/Imm Hx Previously Healthy: Yes Endocrine/Hematology History: Denies: Hx Anticoagulant Therapy, Hx Diabetes, Hx Thyroid Disease Cardiovascular History: Denies: Hx Hypertension, Hx Pacemaker/ICD Respiratory History: Reports: Hx Asthma - sports induced Denies: Hx Chronic Obstructive Pulmonary Disease (COPD) History: Denies: Hx Renal Disease Sensory History: Denies: Hx Contacts or Glasses, Hx Hearing Aid Opthamlomology History: Denies: Hx Contacts or Glasses Neurological History: Reports: Hx Migraine - hx of- last one 6 months ago Denies: Hx Dementia, Hx Seizures, Other Neuro Impairments/Disorders Psychiatric History: Denies: Hx Panic Disorder, Hx Substance Abuse - Cancer History Hx Chemotherapy: No - Surgical History Surgery Procedure, Year, and Place: T&A,2 LEFT ANKLE TO REPAIR TENDON, 1 RIGHT ANKLE TO REPAIR TENDON, CYST REMOVED FROM CHIN. TUBAL LIGATION-ABLASION- APPENDIX 12/2016 Hx Anesthesia Reactions: No - Immunization History Date of Tetanus Vaccine: unk Date of Influenza Vaccine: 11/06/16 Hx Pertussis Vaccination: No Immunizations Up to Date: Yes Infectious Disease History: No Infectious Disease History: Denies: Hx Clostridium Difficile, Hx Hepatitis, Hx Human Immunodeficiency Virus (HIV), Traveled Outside the [place] in Last 30 Days - Family History Known Family History: Positive: None Negative: Hypertension Family History: Pt denies a significant FHx - Social History Occupation: Employed Full-time Lives: With Family Alcohol Use: None Hx Substance Use: No Substance Use Type: Reports: None Hx Tobacco Use: Yes Smoking Status (MU): Former Smoker Amount Used/How Often: smoked for 2-3 years 1/2ppd Have You Smoked in the Last Year: No Review of Systems Constitutional: Negative Negative: Fever, Chills, Fatigue, Skin Diaphoresis Negative: Palpitations, Chest Pain Negative: Shortness Of Breath, Cough Positive: Abdominal Pain - RLQ pain. Negative: Vomiting, Diarrhea, Nausea Genitourinary: Negative Positive: no symptoms reported, see HPI Negative: Rash, Bruising Neurological: Negative All Other Systems Reviewed And Are Negative: Yes Physical Exam Triage Information Reviewed: Yes Vital Signs On Initial Exam: Initial Vitals Temp Pulse Resp BP Pulse Ox 98.1 F 60 16 132/84 96 02/13/19 03:43 02/13/19 03:43 02/13/19 03:43 02/13/19 03:43 02/13/19 03:43 Vital Signs Reviewed: Yes Appearance: Positive: Well-Appearing, Well-Nourished Skin: Positive: Warm, Skin Color Reflects Adequate Perfusion Head/Face: Positive: Normal Head/Face Inspection Eyes: Positive: EOMI, Conjunctiva Clear Neck: Positive: Supple, No Lymphadenopathy Respiratory/Lung Sounds: Positive: Clear to Auscultation, Breath Sounds Present Cardiovascular: Positive: RRR, Pulses are Symmetrical in both Upper and Lower Extremities Musculoskeletal: Positive: Strength/ROM Intact Neurological: Positive: Sensory/Motor Intact, Alert, Oriented to Person Place, Time, Speech Normal Psychiatric: Positive: Normal, Affect/Mood Appropriate AVPU Assessment: Alert Diagnostics - Vital Signs Vital Signs Temp Pulse Resp BP Pulse Ox 02/13/19 03:43 98.1 F 60 16 132/84 96 - Laboratory Lab Results: Lab Results 02/13/19 Range/Units 04:26 Urine Color Yellow Urine Appearance Cloudy Urine pH 5.0 (5-9) Ur Specific [place] 1.012 (1.010-1.030) Urine Protein Negative (Negative) Urine Ketones Negative (Negative) Urine Blood 2+ A (Negative) Urine Nitrate Negative (Negative) Urine Bilirubin Negative (Negative) Urine Urobilinogen Negative (Negative) Ur Leukocyte Esterase Trace A (Negative) Urine WBC (Auto) Trace(0-5/hpf) (Absent) Urine RBC (Auto) Absent (Absent) Ur Squamous Epith Cells Present A (Absent) Urine Bacteria Absent (Absent) Urine Glucose Negative (Negative) Result Diagrams: 02/13/19 06:23 02/13/19 06:23 Lab Statement: Any lab studies that have been ordered have been reviewed, and results considered in the medical decision making process. Abdominal Pain Fem Course/Dx - Course Course Of Treatment: During the course of treatment, the patient is evaluated for RLQ pain. History of appendectomy. Transvaginal ultrasound obtained which has the impression: There is a cystic structure within the endometrial cavity which may represent an intra-uterine gestational sac, blighted ovum or an interim atrial cyst. Recommend clinical correlation and follow-up. I discussed with the patient I have encouraged her to return to her [facility]/ surgeon who she has seen in the past. She is okay with this plan and discharge. I have also offered her pain control, however patient declines this at this time. She is given Tylenol while in the ED and states this was with good relief. She has not had any vaginal bleeding since the seismograph shooter hours , approximately 5-6 hours ago. Denies any urinary symptoms. UA obtained which is negative for infection or RBCs. Patient will be discharged with endometrial cyst. 2 HCG pregnancies/labs both negative. - Diagnoses Differential Diagnosis: Positive: Other - Endometrial cyst, ovarian torsion, right lower quadrant pain Provider Diagnoses: RLQ abdominal pain, Endometrial cyst of ovary Discharge - Sign-Out/Discharge Documenting (check all that apply): Patient Departure Patient Received Moderate/Deep Sedation with Procedure: No - Discharge Plan Condition: Stable Disposition: HOME Patient Education Materials: Ovarian Cyst (ED) Referrals: Channing MORE,Yemi Crawford [Primary Care Provider] - Additional Instructions: As discussed, you have evidence of an endometrial cyst Please follow-up with your previous surgeon If you develop any worsening or changing symptoms, return to the ED These will include worsening vaginal bleeding, pain, dizziness or weakness - Billing Disposition and Condition Condition: STABLE Disposition: Home
[2019-02-13] MEDS ORDERED: Acetaminophen TAB* 325 MG PO ONE (06:16)
[2019-02-13 06:31] LABS: ABS Basophils 0 10^3/ul (0-0.2); ABS Eosinophils 0.4 10^3/ul (0-0.6); ABS Lymphocytes 3.8 10^3/ul (1.0-4.8); ABS Monocytes 0.9 10^3/ul (0-0.8); ABS Neutrophils 5.4 10^3/ul (1.5-7.7); ABS Nucleated RBC 0 10^3/ul; Eosinophil % 4.1 %; Hematocrit 39 % (33-41); Hemoglobin 13.1 g/dL (12.0-16.0); Lymphocyte % 35.9 %; Mean Corpuscular HGB Conc 34 g/dL (31-36); Mean Corpuscular Hemoglobin 31 pg (27-31); Mean Corpuscular Volume 92 fL (80-97); Nucleated Red Blood Cells % 0.1; Platelet Count 330 10^3/uL (150-450); Red Blood Count 4.23 10^6 /uL (3.70-4.87); Red Cell Distribution Width 14 % (10.5-15); White Blood Count 10.6 10^3/uL (3.5-10.8)
[2019-02-13 06:46] LABS: INR 0.96 (0.77-1.02)
[2019-02-13 06:49] LABS: ALT 21 U/L (7-52); AST 19 U/L (13-39); Albumin 3.9 g/dL (3.2-5.2); Albumin/Globulin Ratio 1.4 (1-3); Alkaline Phosphatase 54 U/L (34-104); Anion Gap 9 mmol/L (2-11); Blood Urea Nitrogen 9 mg/dL (6-24); C Reactive Protein 5.12 mg/L (<8.01); CO2 Carbon Dioxide 22 mmol/L (22-32); Calcium 9.2 mg/dL (8.6-10.3); Chloride 107 mmol/L (101-111); EGFR African American 122.6 (>60); EGFR Non-African American 101.3 (>60); Globulin 2.7 g/dL (2-4); Glucose 90 mg/dL (70-100); Potassium 3.5 mmol/L (3.5-5.0); Sodium 138 mmol/L (135-145); Total Protein 6.6 g/dL (6.4-8.9)
[2019-02-13 06:55] LABS: HCG Pregnancy < 0.60 mIU/mL
[2019-02-13 10:26] VITALS: BP 125/95
== END 2019-02-13 10:25 | disposition home or self-care (01) ==
LOC: ED 03:34
DX: N83.201 Unspecified ovarian cyst, right side (principal); Z90.49 Acquired absence of other specified parts of digestive tract; Z98.51 Tubal ligation status; Z88.8 Allergy status to other drugs, medicaments and biological substances; Z88.3 Allergy status to other anti-infective agents; Z87.891 Personal history of nicotine dependence
CPT/HCPCS: 36415; 76830; 80053; 81003; 81015; 84702; 85025; 85610; 86140; 87086; 99282; A9270-GY

== ENCOUNTER 2019-03-06 01:10 | Emergency (ER) | payer OTHER ==
[2019-03-06] MEDS ORDERED: Albuterol 2.5 MG/3 ML NEB.SOL* (0.083%) INH ONE (01:20)
[2019-03-06] MEDS ORDERED: LORazepam INJ* 2 MG/ML 1 ML VIAL IV PUSH ONE (01:20)
[2019-03-06] MEDS ORDERED: Lorazepam PYXIS KEY PRN (01:20)
[2019-03-06] MEDS ORDERED: predniSONE TAB* 20 MG PO ONE (01:20)
--- NOTE | 2019-03-06 01:26 | ED ---
Shortness of Breath - HPI Summary HPI Summary: This patient is a 28 year old female presenting to [facility] with a chief complaint of dyspnea since 1 hour ago. Patient states that she was just working and was generally asymptomatic when her SOB became progressively worse and she couldnt take full breaths. Patient has a hx of asthma, which may contribute. Patient also states that she has had a cold since last Thursday. The pain is rated 0/10 in severity. Symptoms aggravated by nothing. Symptoms alleviated by nothing. Patient additionally reports cough. Patient denies chest pain. - History of Current Complaint Chief Complaint: EDShortnessOfBreath Time Seen by Provider: 03/06/19 01:14 Hx Obtained From: Patient Onset/Duration: Still Present Timing: Constant Current Severity: Mild Dyspnea At: Rest Aggrevating Factors: Nothing Alleviating Factors: Nothing Associated Signs & Symptoms: Negative - chest pain, Cough (Nonproductive) - Allergy/Home Medications Allergies/Adverse Reactions: Allergies Allergy/AdvReac Type Severity Reaction Status Date / Time povidone-iodine Allergy Intermediate Hives Verified 03/06/19 01:14 cephalexin Allergy Mild Hives Verified 03/06/19 01:14 meperidine Allergy Mild Hives Verified 03/06/19 01:14 PMH/Surg Hx/FS Hx/Imm Hx Previously Healthy: Yes Endocrine/Hematology History: Denies: Hx Anticoagulant Therapy, Hx Diabetes, Hx Thyroid Disease Cardiovascular History: Denies: Hx Hypertension, Hx Pacemaker/ICD Respiratory History: Reports: Hx Asthma - sports induced Denies: Hx Chronic Obstructive Pulmonary Disease (COPD) History: Denies: Hx Renal Disease Sensory History: Denies: Hx Contacts or Glasses, Hx Hearing Aid Opthamlomology History: Denies: Hx Contacts or Glasses Neurological History: Reports: Hx Migraine - hx of- last one 6 months ago Denies: Hx Dementia, Hx Seizures, Other Neuro Impairments/Disorders Psychiatric History: Denies: Hx Panic Disorder, Hx Substance Abuse - Cancer History Hx Chemotherapy: No - Surgical History Surgery Procedure, Year, and Place: T&A,2 LEFT ANKLE TO REPAIR TENDON, 1 RIGHT ANKLE TO REPAIR TENDON, CYST REMOVED FROM CHIN. TUBAL LIGATION-ABLASION- APPENDIX 12/2016 Hx Anesthesia Reactions: No - Immunization History Date of Tetanus Vaccine: unk Date of Influenza Vaccine: 11/06/16 Infectious Disease History: No Infectious Disease History: Denies: Hx Clostridium Difficile, Hx Hepatitis, Hx Human Immunodeficiency Virus (HIV), Traveled Outside the US in Last 30 Days - Family History Known Family History: Negative: Hypertension - Social History Occupation: Employed Full-time Alcohol Use: None Alcohol Amount: hx of alcohol abuse Hx Substance Use: No Substance Use Type: Reports: None Hx Tobacco Use: Yes Smoking Status (MU): Former Smoker Amount Used/How Often: smoked for 2-3 years 1/2ppd Have You Smoked in the Last Year: No Review of Systems Negative: Fever Negative: Chest Pain Positive: Shortness Of Breath, Cough All Other Systems Reviewed And Are Negative: Yes Physical Exam - Summary Physical Exam Summary: Appearance: Well-appearing, Well-nourished, lying in bed anxious and tearful Skin: Warm, dry, no obvious rash Eyes: sclera anicteric, no conjunctival pallor ENT: mucous membranes moist, pharynx appears normal Neck: Supple, nontender Respiratory: Clear to auscultation, good aeration. Glottic wheezing. Cardiovascular: Mildly tachycardic. No murmurs. Normal distal pulses in tibial and radial bilaterally. Abdomen: Soft, nontender, normal active bowel sounds present Musculoskeletal: Normal, Strength/ROM Intact Neurological: A&Ox3, awake and alert, mentation is normal, speech is fluent and appropriate Psychiatric: affect is normal, does not appear anxious or depressed Triage Information Reviewed: Yes Vital Signs On Initial Exam: Initial Vitals Temp Pulse Resp BP Pulse Ox 97.6 F 73 32 119/88 97 03/06/19 01:11 03/06/19 01:11 03/06/19 01:11 03/06/19 01:11 03/06/19 01:11 Vital Signs Reviewed: Yes Diagnostics - Vital Signs Vital Signs Temp Pulse Resp BP Pulse Ox 03/06/19 01:11 97.6 F 73 32 119/88 97 - Laboratory Result Diagrams: 03/06/19 02:07 03/06/19 02:07 Lab Statement: Any lab studies that have been ordered have been reviewed, and results considered in the medical decision making process. - Radiology CXR Radiology Interpretation Completed By: ED Physician Summary of Radiographic Findings: CXR reveals, per ED physician, no acute process. Pending official report. - EKG 0134 Cardiac Rate: Bradycardia EKG Rhythm: Sinus Bradycardia - 52 BPM Summary of EKG Findings: An EKG, taken 0134, reveals Sinus Bradycardia (52 BPM) , P waves, QRS complex, and T waves are within normal limits, T waves and intervals are normal, no ischemic changes. This is a normal EKG. Re-Evaluation - Re-Evaluation First Eval Re-Evaluation Time: 03:17 Change: Improved Comment: Patient is much improved. She is no longer wheezing and is not having any respiratory problems. Course/Dx - Course Course Of Treatment: This patient is a 28 year old female presenting to [facility] with a chief complaint of dyspnea since 1 hour ago. Patient states that she was just working and was generally asymptomatic when her SOB became progressively worse and she couldnt take full breaths. Patient has a hx of asthma, which may contribute. An EKG, taken 0134, reveals Sinus Bradycardia (52 BPM), P waves, QRS complex, and T waves are within normal limits, T waves and intervals are normal, no ischemic changes. This is a normal EKG. CXR reveals, per ED physician , no acute process. Pending official report. ED physician has reviewed this radiology report. Bloodwork Obtained. Patient will be discharged with a dx of asthma exacerbation. Patient is advised to follow up with PCP in 3 days. The patient is agreeable with this plan. - Diagnoses Provider Diagnoses: Asthma exacerbation Discharge - Sign-Out/Discharge Documenting (check all that apply): Patient Departure Patient Received Moderate/Deep Sedation with Procedure: No - Discharge Plan Condition: Stable Disposition: HOME Referrals: Channing MORE,Yemi Crawford [Primary Care Provider] - - Attestation Statements Document Initiated by Scribe: Yes Documenting Scribe: Jaime Reza Provider For Whom Kavine is Documenting (Include Credential): Randall Leigh MD Scribe Attestation: Jaime Junior, scribed for Randall Leigh MD on 03/06/19 at 0317. Status of Scribe Document: Ready
--- OUTSIDE RECORDS SUMMARY | 2019-03-06 01:56 | XMS REPORT | Continuity of Care Document ---
:1990 External Reference #:[id number] Author Name Gregoria Sanchez Care Team Providers Name Role Phone Yemi Snell MD Primary Care Physician Unavailable Payers Date Identification Numbers Payment Provider Subscriber Effective: 2017 Policy Number: [id number] [employer] Christina Kendall Onset: 2017 Group Number: [id number] [id number] Group Name: [place] [address] PayID: [id number] Advance Directives Description No Information Available Problems Active Problems Provider Date Superior glenoid labrum lesion of left Homer Romero MD Onset: 2017 shoulder, subsequent encounter Strain of muscle(s) and tendon(s) of the Homer Romero MD Onset: 2017 rotator cuff of left shoulder, subsequent encounter Migraine with typical aura Gurvinder Chaidez MD Onset: 01/26/2017 Family History Date Family Member(s) Observation Comments General Cancer General Breast Cancer General Diabetes General Heart Disease General Hypertension General Stroke Social History Type Date Description Comments Sex Unknown Lives With Children 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 ETOH Use Occasionally consumes alcohol Tobacco Use Start: Unknown End: Unknown Patient is a former smoker Smoking Status Reviewed: 02/28/19 Patient is a former smoker Allergies, Adverse Reactions, Alerts Active Allergies Reaction Severity Comments Date Demerol 08/26/2016 Keflex 08/26/2016 Medications Active Medications SIG Qnty Indications Ordering Provider Date Advair Diskus Juancarlos Bryant MD 100-50mcg/Dose Aerosol Proair HFA Juancarlos Bryant MD 108(90Base) mcg/Act Aerosol History Medications Bactrim DS take one tab by 14tabs Homer Wilson 01/08/2018 - 800-160mg mouth twice daily MD Heather 03/31/2018 Tablets for 7 days to prevent infection. Percocet take 1 to 2 tablets 30tabs Homer Wilson 01/08/2018 - 5-325mg by mouth every 4-6 MD Heather 03/31/2018 Tablets hours for pain. take with food. Medrol take as directed 21tabs M75.32 Homer Wilson 12/03/2017 - 4mg Tablets per little Romero MD 03/31/2018 instructions No Active Unknown 11/12/2017 - Medications 12/03/2017 Medrol take as directed 21tabs M75.32 Homer Wilson 09/10/2017 - 4mg Tablets per little Romero MD 11/11/2017 instructions Sumatriptan 1 by mouth as 9tabs Gurvinder Chaidez 01/26/2017 - Succinate needed migraine may 11/11/2017 100mg repeat once in 2 Tablets hours Depakote 1 tab by mouth at 60tabs G43.019 Gurvinder Chaidez 01/26/2017 - 500mg night for a week 11/11/[address] then 2 at night Depakote ER 1-2 tabs by mouth 60tabs G43.019 Jeannette Hernandez 08/26/2016 - 500mg at bedtime as Dary Grubbs 01/26/2017 Tablets ER 24HR directed Naproxen 1 tab by mouth 60tabs G43.019 Jeannette Hernandez 08/26/2016 - 500mg twice a day as Dary Grubbs 09/30/2017 Tablets needed Nuvaring insert 1 ring Unknown - vaginally every 28 01/09/2017 0.12-0.015mg/24HR days leave in place Ring for 3 weeks, remove, and replace with a new ring after 7 day break for b Sumatriptan take 1 tablet by Unknown - Succinate mouth every 2 hours 01/26/2017 50mg as directed for Tablets headache Amitriptyline HCL take 1 tablets Unknown - every night at 11/11/2017 10mg Tablets bedtime Medications Administered in Office Medication SIG Qnty Indications Ordering Provider Date Depomedrol 40MG Homer Romero MD 09/21/2018 Injection Immunizations Description No Information Available Vital Signs Date Vital Result Comment 02/28/2019 1:24pm Height 62 inches 5'2" Weight 175.00 lb Heart Rate 76 /min BP Systolic 118 mmHg BP Diastolic 70 mmHg Respiratory Rate 12 /min Pain Level 2 BMI (Body Mass Index) 32.0 kg/m2 11/04/2018 9:38am Height 62 inches 5'2" Heart Rate 78 /min BP Systolic 118 mmHg BP Diastolic 78 mmHg Respiratory Rate 18 /min Pain Level 5 09/21/2018 9:51am Height 62 inches 5'2" Weight 168.00 lb Heart Rate 72 /min BP Systolic 142 mmHg BP Diastolic 74 mmHg Respiratory Rate 12 /min Pain Level 5 BMI (Body Mass Index) 30.7 kg/m2 06/03/2018 9:43am Height 62 inches 5'2" Weight 173.00 lb Heart Rate 115 /min Respiratory Rate 16 /min Pain Level 0 BMI (Body Mass Index) 31.6 kg/m2 04/01/2018 9:36am Height 62 inches 5'2" Weight 173.00 lb Heart Rate 80 /min BP Systolic 108 mmHg BP Diastolic 68 mmHg Respiratory Rate 14 /min Pain Level 3 BMI (Body Mass Index) 31.6 kg/m2 02/16/2018 8:59am Height 62 inches 5'2" Heart Rate 103 /min BP Systolic 118 mmHg BP Diastolic 80 mmHg Respiratory Rate 16 /min Body Temperature 97.8 F Pain Level 4 01/19/2018 8:25am Height 62 inches 5'2" Heart Rate 69 /min BP Systolic 118 mmHg BP Diastolic 78 mmHg Respiratory Rate 16 /min Body Temperature 98.4 F Pain Level 4 12/10/2017 2:54pm Height 62 inches 5'2" Weight 176.00 lb BP Systolic 126 mmHg BP Diastolic 72 mmHg Respiratory Rate 16 /min Body Temperature 97.4 F Pain Level 8 BMI (Body Mass Index) 32.2 kg/m2 12/03/2017 11:27am Height 62 inches 5'2" Heart Rate 82 /min Respiratory Rate 19 /min Body Temperature 98.2 F Pain Level 10 11/12/2017 9:09am Height 62 inches 5'2" Weight 176.00 lb BP Systolic 128 mmHg BP Diastolic 74 mmHg Respiratory Rate 17 /min Pain Level 2 BMI (Body Mass Index) 32.2 kg/m2 10/01/2017 8:11am Height 62 inches 5'2" Weight 177.00 lb Heart Rate 75 /min Respiratory Rate 15 /min Body Temperature 98.1 F Pain Level 2 BMI (Body Mass Index) 32.4 kg/m2 09/10/2017 10:32am Height 62 inches 5'2" Weight 177.00 lb Heart Rate 78 /min BP Systolic 122 mmHg BP Diastolic 82 mmHg Body Temperature 98.6 F Pain Level 7 BMI (Body Mass Index) 32.4 kg/m2 01/26/2017 2:40pm Height 62 inches 5'2" Weight 160.25 lb BMI (Body Mass Index) 29.3 kg/m2 08/26/2016 11:15am Height 62 inches 5'2" Weight 147.00 lb Heart Rate 56 /min BP Systolic Sitting 122 mmHg BP Diastolic Sitting 80 mmHg Respiratory Rate 14 /min BMI (Body Mass Index) 26.9 kg/m2 Results Test Date Facility Test Result H/L Range Note Connective Tissue 08/26/2016 [facility] Anti-Nuclear 0.1 U N 1 Panel [address] [place] [address] [phone] Cyclic Citrullinated Peptide <15.6 U N 2 Interpretation See Comment N 3 Laboratory test 08/26/2016 [facility] C Reactive 12.42 mg/L High < 5.00 4 finding [address] [place] [address] [phone] 1 REFERENCE VALUE <=1.0 (Negative) 2 REFERENCE VALUE <20.0 (Negative) 3 Tests for antibodies to dsDNA and FITO antigens are not performed automatically unless the BEAN result is > or= 3.0 U. Studies performed at [facility] indicate that positive BEAN results <3.0 U are rarely accompanied by positive second order tests. Test Performed by: [facility] - [address] [address] Chief Operator Hydroformer: Juancarlos Gonzáles II, M.D., Ph.D. 4 Acute inflammation: >10.00 Procedures Date Code Description Status 09/21/201834748 Inject/Drain Joint/Bursa Intermediate W/O US Completed 01/08/2018 62146 Arthroscopy Shoulder,W/Rotator Cuff Repair Completed 01/08/2018 43026 Arthroscopy Shoulder,W/Rotator Cuff Repair Completed 01/08/2018 16799 Tenodesis Biceps Long Tendon Completed 01/08/2018 10686 Tenodesis Biceps Long Tendon Completed 09/10/201767659 Inject/Drain Joint/Bursa Major W/O US Completed Encounters Type Date Location Provider Dx Diagnosis Office Visit 11/04/2018 Orthopedic Homer Wilson S46.012D Strain of 9:45a [facility] teddy Melvin/tend the rotator cuff of left shoulder, subs Office Visit 09/21/2018 Yaima Wilson S46.012D Strain of 9:15a [facility] teddy Melvin/tend the rotator cuff of left shoulder, subs S43.432D Superior glenoid labrum lesion of left shoulder, subs encntr M75.32 [facility] tendinitis of left shoulder M75.52 Bursitis of left shoulder Office Visit 06/03/2018 9:30a Yaima Wilson S46.012D Strain of Services Of [facility] teddy Romero/tend the C.M.A. rotator cuff of left shoulder, subs S43.432D Superior glenoid labrum lesion of left shoulder, subs encntr M75.32 [facility] tendinitis of left shoulder M75.52 Bursitis of left shoulder Office Visit 12/10/2017 3:00p Yaima Andersen.Gino [facility] Heather tendinitis of C.M.A. left shoulder M75.32 [facility] tendinitis of left shoulder Office Visit 12/03/2017 11:15a Yaima Andersen.Gino [facility] Heather tendinitis of C.M.A. left shoulder M25.512 Pain in left shoulder Office Visit 11/12/2017 9:00a Yaima Andersen.32 [facility] Heather tendinitis of C.M.A. left shoulder M25.512 Pain in left shoulder Office Visit 10/01/2017 8:00a Orthopedic Homer Wilson M75.32 [facility] Heather tendinitis of C.M.A. left shoulder Office Visit 09/10/2017 10:00a Orthopedic Homer Gonzáles75.32 [facility] Heather tendinitis of C.M.A. left shoulder M75.32 [facility] tendinitis of left shoulder Office 01/26/2017 [facility] Gurvinder G43.109 Migraine with Visit 2:30p Clinic MD Kaylynn aura, not intractable, w/o status migrainosus Z79.899 Other jail (current) drug therapy Office Visit 08/26/2016 Joceline Hernandez G44.41 Drug-induced 11:00a Neurologic Dary Grubbs headache, not [facility] elsewhere classified, intractable G43.019 Migraine w/o aura, intractable, without status migrainosus Plan of Treatment 02/28/2019 - Homer Romero, MDS46.012D Strain of muscle(s) and tendon(s) of the rotator cuff of lefFollow up:Follow up: As hvidynT58.432D Superior glenoid labrum lesion of left shoulder, ikpodanvuwQ16.32 [facility]cific tendinitis of left eqaluepwU18.52 Bursitis of left shoulder
[2019-03-06 02:17] LABS: ABS Eosinophils 0.2 10^3/ul (0-0.6); ABS Lymphocytes 4.7 10^3/ul (1.0-4.8); ABS Monocytes 0.8 10^3/ul (0-0.8); ABS Neutrophils 4.5 10^3/ul (1.5-7.7); Eosinophil % 1.8 %; Hematocrit 40 % (35-47); Hemoglobin 13.4 g/dL (12.0-16.0); Lymphocyte % 46.1 %; Mean Corpuscular HGB Conc 34 g/dL (31-36); Mean Corpuscular Hemoglobin 31 pg (27-31); Mean Corpuscular Volume 91 fL (80-97); Mean Platelet Volume 8.6 fL (7.4-10.4); Nucleated Red Blood Cells % 0.1; Platelet Count 302 10^3/uL (150-450); Red Blood Count 4.34 10^6 /uL (3.70-4.87); Red Cell Distribution Width 14 % (10.5-15); White Blood Count 10.2 10^3/uL (3.5-10.8)
[2019-03-06 02:34] LABS: ALT 25 U/L (7-52); AST 24 U/L (13-39); Albumin/Globulin Ratio 1.5 (1-3); Alkaline Phosphatase 48 U/L (34-104); Anion Gap 9 mmol/L (2-11); BUN/Creatinine Ratio 13.4 (8-20); Blood Urea Nitrogen 9 mg/dL (6-24); CO2 Carbon Dioxide 19 mmol/L (22-32); Calcium 9.1 mg/dL (8.6-10.3); Chloride 111 mmol/L (101-111); EGFR African American 126.8 (>60); EGFR Non-African American 104.8 (>60); Globulin 2.7 g/dL (2-4); Glucose 110 mg/dL (70-100); Potassium 3.7 mmol/L (3.5-5.0); Sodium 139 mmol/L (135-145); Total Protein 6.7 g/dL (6.4-8.9)
[2019-03-06 02:40] LABS: HCG Pregnancy < 0.60 mIU/mL
[2019-03-06 03:48] VITALS: BP 107/69
== END 2019-03-06 04:11 | disposition home or self-care (01) ==
LOC: ED 01:10
DX: J45.901 Unspecified asthma with (acute) exacerbation (principal); R06.00 Dyspnea, unspecified; Z87.891 Personal history of nicotine dependence
CPT/HCPCS: 36415; 71045; 80053; 82803; 84702; 85025; 93005; 96374; 99283; J2060; J7512

== ENCOUNTER → 2019-03-19 16:38 | Emergency (ER) | payer SELFPAY ==
[2019-03-19 16:43] VITALS: BP 136/81
--- NOTE | 2019-03-19 17:01 | ED ---
Back Pain - HPI Summary HPI Summary: This patient is a 28 year old F presenting to [facility] with a chief complaint of right lower back pain after a resident at [facility] fell on top of her prior to arrival. Patient states she hit her left lower back on the bed while supporting the weight of the resident she was helping. Pain is rated 6/10 in severity. Pain worsened with sitting. Denies radiation into her legs and difficulty walking. - History of Current Complaint Chief Complaint: EDBackInjuryPain Stated Complaint: BACK INJURY PER PT Time Seen by Provider: 03/19/19 16:54 Hx Obtained From: Patient Hx Last Menstrual Period: 04/01/16 Onset/Duration: Sudden Onset Onset/Duration: Started Minutes Ago Timing: Constant Back Pain Location: Is Discrete @ - right lower Severity Initially: Moderate Severity Currently: Moderate Pain Intensity: 6 Pain Scale Used: 0-10 Numeric Aggravating Symptom(s): Other - sitting - Allergies/Home Medications Allergies/Adverse Reactions: Allergies Allergy/AdvReac Type Severity Reaction Status Date / Time povidone-iodine Allergy Intermediate Hives Verified 03/19/19 16:43 cephalexin Allergy Mild Hives Verified 03/19/19 16:43 meperidine Allergy Mild Hives Verified 03/19/19 16:43 PMH/Surg Hx/FS Hx/Imm Hx Endocrine/Hematology History: Denies: Hx Anticoagulant Therapy, Hx Diabetes, Hx Thyroid Disease Cardiovascular History: Denies: Hx Hypertension, Hx Pacemaker/ICD Respiratory History: Reports: Hx Asthma - sports induced Denies: Hx Chronic Obstructive Pulmonary Disease (COPD) History: Denies: Hx Renal Disease Sensory History: Denies: Hx Contacts or Glasses, Hx Hearing Aid Opthamlomology History: Denies: Hx Contacts or Glasses Neurological History: Reports: Hx Migraine - hx of- last one 6 months ago Denies: Hx Dementia, Hx Seizures, Other Neuro Impairments/Disorders Psychiatric History: Denies: Hx Panic Disorder, Hx Substance Abuse - Cancer History Hx Chemotherapy: No - Surgical History Surgery Procedure, Year, and Place: T&A,2 LEFT ANKLE TO REPAIR TENDON, 1 RIGHT ANKLE TO REPAIR TENDON, CYST REMOVED FROM CHIN. TUBAL LIGATION-ABLASION- APPENDIX 12/2016 Hx Anesthesia Reactions: No - Immunization History Date of Tetanus Vaccine: unk Date of Influenza Vaccine: 11/06/16 Infectious Disease History: No Infectious Disease History: Denies: Hx Clostridium Difficile, Hx Hepatitis, Hx Human Immunodeficiency Virus (HIV), Traveled Outside the [place] in Last 30 Days - Family History Known Family History: Negative: Hypertension - Social History Alcohol Use: None Alcohol Amount: hx of alcohol abuse Hx Substance Use: No Substance Use Type: Reports: None Hx Tobacco Use: Yes Smoking Status (MU): Former Smoker Amount Used/How Often: smoked for 2-3 years 1/2ppd Have You Smoked in the Last Year: No Review of Systems Positive: Myalgia - back pain Negative: Weakness All Other Systems Reviewed And Are Negative: Yes Physical Exam - Summary Physical Exam Summary: Appearance: Well-appearing, Well-nourished, lying in bed comfortably Skin: Warm, dry, no obvious rash Eyes: sclera anicteric, no conjunctival pallor ENT: mucous membranes moist, pharynx appears normal Neck: Supple, nontender Respiratory: Clear to auscultation, no signs of respiratory distress Cardiovascular: Normal S1, S2. No murmurs. Normal distal pulses in tibial and radial bilaterally. Abdomen: Soft, nontender, normal active bowel sounds present Musculoskeletal: Soft tissue tenderness to the right side of back with no visible bruising or other signs of injury; Can bend only 30 degrees from vertical position; Good strength in lower extremity Neurological: A&Ox3, awake and alert, mentation is normal, speech is fluent and appropriate Psychiatric: affect is normal, does not appear anxious or depressed Triage Information Reviewed: Yes Vital Signs On Initial Exam: Initial Vitals Temp Pulse Resp BP Pulse Ox 97.7 F 99 18 136/81 96 03/19/19 16:39 03/19/19 16:39 03/19/19 16:39 03/19/19 16:39 03/19/19 16:39 Vital Signs Reviewed: Yes Diagnostics - Vital Signs Vital Signs Temp Pulse Resp BP Pulse Ox 03/19/19 16:39 97.7 F 99 18 136/81 96 - Laboratory Lab Statement: Any lab studies that have been ordered have been reviewed, and results considered in the medical decision making process. Back Pain Course/Dx - Course Course Of Treatment: 28 year old F presenting to [facility] with a chief complaint of right lower back pain after a resident at [facility] fell on top of her prior to arrival. Patient states she hit her left lower back on the bed while supporting the weight of the resident she was helping. Upon exam there is soft tissue tenderness to the right side of back with no visible bruising or other signs of injury. She can bend only 30 degrees from vertical position. There is good strength in the lower extremities. Patient is given a work note for today and is advised to follow up with Dr. Roe, an environmental education specialist, on wednesday 03/21. Patient is agreeable with this plan. - Diagnoses Provider Diagnoses: Back contusion Discharge - Sign-Out/Discharge Documenting (check all that apply): Patient Departure - discharge Patient Received Moderate/Deep Sedation with Procedure: No - Discharge Plan Condition: Good Disposition: HOME Patient Education Materials: Low Back Strain (ED) Forms: *Work Release Referrals: Channing MORE,Yemi Crawford [Primary Care Provider] - Beto Roe MD [Medical Doctor] - Additional Instructions: Your employer may have a preference for where to go for a back to work check, but if not Dr. Roe is an [facility] specialists and he and his staff are well versed in handling work place injuries and dealing with workers compensation. I would recommend you see him on Thursday. - Billing Disposition and Condition Condition: GOOD Disposition: Home - Attestation Statements Document Initiated by Nahumibe: Yes Documenting Scribe: Nova Felder Provider For Whom Alan is Documenting (Include Credential): Randall Leigh MD Scribe Attestation: I, Nova Felder, scribed for Randall Leigh MD on 03/19/19 at 2137. Scribe Documentation Reviewed: Yes Provider Attestation: The documentation as recorded by the Nova ellis accurately reflects the service I personally performed and the decisions made by me, Randall Leigh MD Status of Scribe Document: Viewed
--- OUTSIDE RECORDS SUMMARY | 2019-03-19 17:24 | XMS REPORT | Continuity of Care Document ---
:1990 External Reference #:[id number] Author Name Frederick Cunha MD Address [address] [place] [address] Care Team Providers Name Role Phone Yemi Snell MD Care Team Information Soap Tender Unavailable Yemi Snell MD Primary Care Physician Unavailable Payers Date Identification Numbers Payment Provider Subscriber Expires: 2017 Policy Number: [id number] [facility] Christina Gonzáles Faiza PayID: [id number] [address] [place] [phone] Policy Number: [id number] [facility] Christina Gonzáles Faiza PayID: [id number] [address] [place] [phone] Problems Active Problems Provider Date Allergic urticaria Frederick Cunha MD Onset: 01/02/2017 Allergy to other foods Frederick Cunha MD Onset: 01/02/2017 Idiopathic urticaria RUTH Gimenez Onset: 02/04/2017 Dermatographic urticaria RUTH Gimenez Onset: 02/04/2017 Uncomplicated moderate persistent Rosa Green NP Onset: 06/18/2018 asthma Social History Type Date Description Comments Sex Unknown Pets None Tobacco Use Start: Unknown Never Smoked Cigarettes Tobacco Use Start: Unknown End: Unknown Patient is a former smoker Tobacco Use Start: Unknown Patient quit smoking 3 years ago Smoking Status Reviewed: 03/17/19 Patient quit smoking 3 years ago Allergies, Adverse Reactions, Alerts Active Allergies Reaction Severity Comments Date Demerol 01/02/2017 Keflex 01/02/2017 Medications Active Medications SIG Qnty Indications Ordering Provider Date Zyrtec Allergy one tablet by 60tabs J45.40 Christopher A. 03/17/2019 10mg mouth every [facility] Tablets morning and evening Singulair Take 1 tablet (10 30tabs J45.40 Christopher A. 03/17/2019 10mg mg) by oral route [facility] Tablets once daily in the evening D[facility]epin HCL take one capsule [facility] 03/17/2019 25mg every night. MD [facility] Capsules Breo Ellipta inhale one puff 60units Christopher A. 08/02/2018 once a day [facility] 200-25mcg/Inh Aerosol Adrenaclick as directed 2units L50.0 [facility] 01/02/2017 [facility] 0.3mg/0.3ML Solution Auto-Inject Ventolin HFA inhale 2 puffs by 8gm Frederick Goel. inhalation route [facility] 108(90Base) mcg/Act every 4 hours as Aerosol needed History Medications Montelukast Sodium Take one tablet by 30tabs L50.1 Irvinopher A. 2017 - 10mg mouth daily in the [facility] 03/17/2019 Tablets evening Levocetirizine Take one tablet by 30tabs L50.1 Irvinopher A. 07/14/2018 - Dihydrochloride mouth daily at [facility] 03/17/2019 5mg bedtime Tablets Advair Diskus inhale one puff by 60units Rosa Green 06/18/2018 - mouth twice a day. SHIRT TURNER 03/17/2019 500-50mcg/Dose rinse mouth after Aerosol use. Singulair Take 1 tablet (10 30tabs L50.1 Christopher A. 02/04/2017 - 10mg Tablets mg) by oral route [facility] 06/18/2018 once daily in the evening Xyzal Take 1 tablet (5 30tabs L50.1 Christopher A. 02/04/2017 - 5mg Tablets mg) by oral route [facility] 06/18/2018 once daily at bedtime. Clarinex Take one tablet by 30tabs L50.1 Frederick Goel. 02/04/2017 - 5mg Tablets mouth daily in the [facility] 03/17/2019 morning Claritin one tablet by mouth 30tabs L50.0 Frederick Goel. 01/02/2017 - 10mg Tablets every morning [facility] 06/18/2018 Zyrtec Allergy one tablet by mouth 30tabs L50.0 Frederick Goel. 01/02/2017 - 10mg every evening [facility] 07/14/2018 Tablets Epipen 2-Singh as directed 2units L50.0 Frederick Martinez 01/02/2017 - [facility] 01/02/2017 0.3mg/0.3ML Solution Auto-Inject Atrovent HFA inhale 2 puffs by Unknown - 17mcg/Act inhalation route 4 06/18/2018 Aerosol times a day as needed Depakote Unknown - 06/18/2018 Advair Diskus inhale 1 puff by Unknown - inhalation route 2 06/18/2018 250-50mcg/Dose times per day in Aerosol the morning and evening approximately 12 hours apart Vital Signs Date Vital Result Comment 03/17/2019 1:05pm BP Systolic 118 mmHg BP Diastolic 64 mmHg Height 62 inches 5'2" Heart Rate 84 /min Respiratory Rate 16 /min Body Temperature 97.4 F O2 % BldC Oximetry 95 % 07/14/2018 8:42am BP Systolic 116 mmHg BP Diastolic 94 mmHg Height 62 inches 5'2" Weight 176.31 lb BMI (Body Mass Index) 32.2 kg/m2 Heart Rate 63 /min Respiratory Rate 12 /min Body Temperature 97.4 F O2 % BldC Oximetry 99 % 06/18/2018 10:27am BP Systolic 104 mmHg BP Diastolic 82 mmHg Height 62 inches 5'2" Weight 179.00 lb BMI (Body Mass Index) 32.7 kg/m2 Heart Rate 67 /min Respiratory Rate 18 /min Body Temperature 98.4 F O2 % BldC Oximetry 98 % 02/04/2017 11:17am BP Systolic 108 mmHg BP Diastolic 72 mmHg Height 62 inches 5'2" Weight 162.00 lb BMI (Body Mass Index) 29.6 kg/m2 Heart Rate 66 /min Respiratory Rate 16 /min Body Temperature 97.1 F 01/02/2017 2:41pm BP Systolic 106 mmHg BP Diastolic 72 mmHg Height 62 inches 5'2" Weight 160.00 lb BMI (Body Mass Index) 29.3 kg/m2 Heart Rate 66 /min Respiratory Rate 16 /min Body Temperature 97.4 F O2 % BldC Oximetry 99 % Results Test Date Facility Test Result H/L Range Note Order 03/17/2019 [facility] Nitric Oxide <pending> PFT Supplies <pending> PFT With Bronchodilator <pending> Order 01/02/2017 [facility] Epinephrine Injector < pending> Training Procedures Date Code Description Status 03/17/2019 87906 Nitric Oxide Gas Determination Completed 03/17/2019 85560 Bronchodilation Responsiveness Spirometry Pre/Post Completed Bronchodil Adm 06/18/2018 11195 Nitric Oxide Gas Determination Completed 06/18/2018 08525 Nitric Oxide Gas Determination Completed 06/18/2018 58185 Bronchodilation Responsiveness Spirometry Pre/Post Completed Bronchodil Adm 06/18/2018 82691 Bronchodilation Responsiveness Spirometry Pre/Post Completed Bronchodil Adm 01/02/2017 37471 Education/Training PT Self-Management Each 30Minutes Indiv Completed PT Encounters Type Date Location Provider Dx Diagnosis [place] 03/17/2019 [place] J45.40 Moderate persistent 1:00p asthma, uncomplicated L50.1 Idiopathic urticaria L50.3 Dermatographic urticaria Office Visit 07/14/2018 8:30a Luana Weathers45.40 Moderate persistent Fenstermacher, RPA-C asthma, uncomplicated L50.1 Idiopathic urticaria L50.3 Dermatographic urticaria Office Visit 06/18/2018 10:30a Luana Green, SHIRT TURNER L50.1 Idiopathic urticaria L50.3 Dermatographic urticaria J45.40 Moderate persistent asthma, uncomplicated Office Visit 02/04/2017 11:00a Luana Lr S. Fenstermacher, L50.1 Idiopathic RPA-C urticaria L50.3 Dermatographic urticaria Office Visit 01/02/2017 2:15p Luana Cunha, L50.0 Allergic urticaria Z91.018 Allergy to other foods Plan of Treatment 03/17/2019 - [place] WebbJ45.40 Moderate persistent asthma, uncomplicatedNew Medication:Zyrtec Allergy 10 mg - one tablet by mouth every morning and eveningSingulair 10 mg - Take 1 tablet (10 mg) by oral route once daily in the eveningDoxepin HCL 25 mg - take one capsule every night.Comments:Patient's PFT is within normal limits and exhaled nitric oxide is normal at 20 ppb. We will discontinue Advair. Patient will use only Breo, as prescribed, for prophylaxis of her lungs and Ventolin for breakthrough chest symptoms. Patient will take doxepin, as prescribed as a daily suppressive antihistamine. Patient will take Singulair, as prescribed, for additional prophylaxis of her lungs. Patient will take Zyrtec, twice a day for additional suppressive antihistamine therapy.We will begin the process for prior auth to obtain Xolair for this patient as I believe she will achieve maximum benefit from this medication.L50.1 Idiopathic sqhofomuwR83.3 Dermatographic urticaria
--- OUTSIDE RECORDS SUMMARY | 2019-03-19 17:24 | XMS REPORT | Continuity of Care Document ---
:1990 External Reference #:[id number] Author Name Azul Sher Care Team Providers Name Role Phone Yemi Snell MD Care Team Information Supervisor [employer] Unavailable Yemi Snell MD Primary Care Physician Unavailable Payers Date Identification Numbers Payment Provider Subscriber Expires: 2017 Policy Number: [id number] [facility] Tyshawnosiel Gonzáles Faiza PayID: [id number] [address] [place] [address] Policy Number: [id number] [facility] Christina Kendall PayID: [id number] [address] [place] [phone] Problems Active Problems Provider Date Allergic urticaria [...] smoking 3 years ago Smoking Status Reviewed: 07/14/18 Patient quit smoking 3 years ago Allergies, Adverse Reactions, Alerts Active Allergies Reaction Severity Comments Date Demerol 01/02/2017 Keflex 01/02/2017 Medications Active Medications SIG Qnty Indications Ordering Provider Date Breo Ellipta inhale one puff 60units Frederick Martinez 08/02/2018 once a day [facility] 200-25mcg/Inh Aerosol Advair Diskus inhale one puff 60units Rosa Green NP 06/18/2018 by mouth twice a 500-50mcg/Dose day. rinse mouth Aerosol after use. Adrenaclick as directed 2units L50.0 Frederick A. 01/02/2017 [facility] 0.3mg/0.3ML Solution Auto-Inject Ventolin HFA inhale 2 puffs by Unknown inhalation route 108(90Base) mcg/Act every 4 hours as Aerosol needed History Medications Montelukast Sodium Take one tablet by 30tabs L50.1 Frederick Goel. 2017 - 10mg mouth daily in the [facility] 03/17/2019 Tablets evening Levocetirizine Take one tablet by 30tabs L50.1 Frederick Goel. 07/14/2018 - Dihydrochloride mouth daily at [facility] 03/17/2019 5mg bedtime Tablets Clarinex Take one tablet by 30tabs L50.1 Frederick Martinez 02/04/2017 - 5mg Tablets mouth daily in the [facility] 03/17/2019 morning Xyzal Take 1 tablet (5 30tabs L50.1 Frederick Goel. 02/04/2017 - 5mg Tablets mg) by oral route [facility] 06/18/2018 once daily at bedtime. Singulair Take 1 tablet (10 30tabs L50.1 Irvinopher A. 02/04/2017 - 10mg Tablets mg) by oral route [facility] 06/18/2018 once daily in the evening Claritin one tablet by mouth 30tabs L50.0 [...] Facility Test Result H/L Range Note Order 01/02/2017 [facility] Epinephrine Injector < pending> Training Procedures Date Code Description Status 06/18/2018 55380 Nitric Oxide Gas Determination Completed 06/18/2018 76695 Nitric Oxide Gas Determination Completed 06/18/2018 93545 Bronchodilation Responsiveness Spirometry Pre/Post Completed Bronchodil Adm 06/18/2018 96365 Bronchodilation Responsiveness Spirometry Pre/Post Completed Bronchodil Adm 01/02/2017 31285 Education/Training PT Self-Management Each 30Minutes Indiv Completed PT Encounters Type Date Location Provider Dx Diagnosis Office Visit 07/14/2018 Luana DickinsonYonatan J45.40 Moderate persistent 8:30a Fenstermacher, asthma, uncomplicated RPA-C L50.1 Idiopathic urticaria L50.3 Dermatographic urticaria Office Visit 06/18/2018 10:30a Luana Rosa Green, PHOTOGRAPHIC SPOTTER L50.1 Idiopathic urticaria L50.3 Dermatographic urticaria J45.40 Moderate persistent asthma, uncomplicated Office Visit 02/04/2017 11:00a Luana Dickinson. Fenstermacher, L50.1 Idiopathic RPA-C urticaria L50.3 Dermatographic urticaria Office Visit 01/02/2017 2:15p [place], L50.0 Allergic urticaria Z91.018 Allergy to other foods Plan of Treatment 07/14/2018 - Adeline Youssef, RPA-CJ45.40 Moderate persistent asthma, uncomplicatedComments:Continue Advair 500/50. Continue Ventolin Q4 hours as needed. I will restart Singulair for additional therapy for both her respiratory symptoms and chronic hives. Total IgE level is elevated at 260 kU/ L. I will submit prior auth for Xolair anti-IgE therapy for treatment of both her poorly controlled asthma and chronic idiopathic urticaria.L50.1 Idiopathic urticariaNew Medication:Montelukast Sodium 10 mg - Take one tablet by mouth daily in the eveningLevocetirizine Dihydrochloride 5 mg - Take one tablet by mouth daily at bedtimeComments:Screening for thyroid, liver and autoimmune disease is normal. Baseline serum tryptase level is alsonormal. Patient has chronic idiopathic urticaria exacerbated by heat. Continue Clarinex as prescribed. Replace Zyrtec with Xyzal at bedtime. Avoid heat as much as possible. I will submit prior auth forXolair anti-IgE therapy for treatment of chronic hives. The dose will be 300mg Q4 weeks.Follow up:Our office to contact patient once Xolair has been approved.L50.3 Dermatographic urticaria
== END | disposition home or self-care (01) ==
LOC: ED 16:38
DX: S30.0XXA Contusion of lower back and pelvis, initial encounter (principal); Z87.891 Personal history of nicotine dependence; W19.XXXA Unspecified fall, initial encounter
CPT/HCPCS: 99281

== ENCOUNTER 2019-09-17 11:40 | Emergency (ER) | payer OTHER ==
--- NOTE | 2019-09-17 12:03 | ED ---
Upper Extremity Pain - HPI Summary HPI Summary: This patient is a 29 year old F presenting to [facility] with a chief complaint of extreme left shoulder pain since this morning. Pt has a small lump on left arm ( since one month ago), and originally thought it was from a bicep tendon surgery (she broke her rotator cuff at work two years ago). Pt had the surgery in December [address] Monteiro. Recently she bumped her arm and it shot pain down her arm , and her fingers were tingling. Today when pt woke up her whole left side was shooting pain beginning at her ear and going down to her fingers. Pt cannot feel her fingers. Per triage, the patient rates the pain 10/10 in severity. - History of Current Complaint Chief Complaint: EDChestPainROMI Stated Complaint: ARM PAIN, ARM NUMBNESS NECK PAIN , CHEST PAIN Time Seen by Provider: 09/17/19 11:49 Hx Obtained From: Patient Hx Last Menstrual Period: 04/01/16 Onset/Duration: Started Hours Ago Timing: Constant Severity Initially: Severe Severity Currently: Severe Pain Location: Shoulder Character: Sharp Aggravating Factor(s): Nothing Alleviating Factor(s): Nothing Associated Signs & Symptoms: Positive: Negative - Allergies/Home Medications Allergies/Adverse Reactions: Allergies Allergy/AdvReac Type Severity Reaction Status Date / Time povidone-iodine Allergy Intermediate Hives Verified 09/17/19 11:47 cephalexin Allergy Mild Hives Verified 09/17/19 11:47 meperidine Allergy Mild Hives Verified 09/17/19 11:47 Home Medications: Home Medications Cetirizine* [ZyrTEC 10 MG TAB*] 10 mg PO DAILY 09/17/19 [History Confirmed 09/17] Diclofenac 1% GEL (NF) [Voltaren 1% GEL (NF)] 1 applic TOPICAL DAILY 09/17/19 [ History Confirmed 09/17/19] PMH/Surg Hx/FS Hx/Imm Hx Endocrine/Hematology History: Denies: Hx Anticoagulant Therapy, Hx Diabetes, Hx Thyroid Disease Cardiovascular History: Denies: Hx Hypertension, Hx Pacemaker/ICD Respiratory History: Reports: Hx Asthma - sports induced Denies: Hx Chronic Obstructive Pulmonary Disease (COPD) History: Denies: Hx Renal Disease Sensory History: Denies: Hx Contacts or Glasses, Hx Hearing Aid Opthamlomology History: Denies: Hx Contacts or Glasses Neurological History: Reports: Hx Migraine - hx of- last one 6 months ago Denies: Hx Dementia, Hx Seizures, Other Neuro Impairments/Disorders Psychiatric History: Denies: Hx Panic Disorder, Hx Substance Abuse - Cancer History Hx Chemotherapy: No - Surgical History Surgery Procedure, Year, and Place: T&A,2 LEFT ANKLE TO REPAIR TENDON, 1 RIGHT ANKLE TO REPAIR TENDON, CYST REMOVED FROM CHIN. TUBAL LIGATION-ABLASION- APPENDIX 12/2016 Hx Anesthesia Reactions: No - Immunization History Date of Tetanus Vaccine: unk Date of Influenza Vaccine: 11/06/16 Infectious Disease History: No Infectious Disease History: Denies: Hx Clostridium Difficile, Hx Hepatitis, Hx Human Immunodeficiency Virus (HIV), Traveled Outside the [place] in Last 30 Days - Family History Known Family History: Negative: Hypertension - Social History Alcohol Use: None Alcohol Amount: hx of alcohol abuse Hx Substance Use: No Substance Use Type: Reports: None Hx Tobacco Use: Yes Smoking Status (MU): Former Smoker Amount Used/How Often: smoked for 2-3 years 1/2ppd Have You Smoked in the Last Year: No Review of Systems Positive: Other - shoulder pain Positive: Numbness All Other Systems Reviewed And Are Negative: Yes Physical Exam - Summary Physical Exam Summary: VITAL SIGNS: Reviewed. GENERAL: Patient is a well-developed and nourished female. Patient is in acute distress, secondary to pain. HEAD AND FACE: No signs of trauma. No ecchymosis, hematomas or skull depressions. No sinus tenderness. EYES: PERRLA, EOMI x 2, No injected conjunctiva, no nystagmus. EARS: Hearing grossly intact. Ear canals and tympanic membranes are within normal limits. MOUTH: Oropharynx within normal limits. NECK: Supple, trachea is midline, no adenopathy, no JVD, no carotid bruit, no c- spine tenderness, neck with full ROM. CHEST: Symmetric, no tenderness at palpation. LUNGS: Clear to auscultation bilaterally. No wheezing or crackles. CVS: Regular rate and rhythm, S1 and S2 present, no murmurs or gallops appreciated. ABDOMEN: Soft, non-tender. No signs of distention. No rebound, no guarding, and no masses palpated. Bowel sounds are normal. EXTREMITIES: FROM in all major joints, no edema; the pain is in left shoulder radiating to left side of chest; Good cap refill, and good pulses NEURO: Alert and oriented x 3. No acute neurological deficits. Speech is normal and follows commands. SKIN: Dry and warm. Left arm has a slight nodule that is tender to palpation, movable, indurated and hard. Triage Information Reviewed: Yes Vital Signs On Initial Exam: Initial Vitals Temp Pulse Resp BP Pulse Ox 97.4 F 73 16 128/82 98 09/17/19 11:42 09/17/19 11:42 09/17/19 11:42 09/17/19 11:42 09/17/19 11:42 Vital Signs Reviewed: Yes Procedures - Sedation Patient Received Moderate/Deep Sedation with Procedure: No Diagnostics - Vital Signs Vital Signs Temp Pulse Resp BP Pulse Ox 09/17/19 11:42 97.4 F 73 16 128/82 98 - Laboratory Result Diagrams: 09/17/19 13:18 09/17/19 13:18 Lab Statement: Any lab studies that have been ordered have been reviewed, and results considered in the medical decision making process. - Radiology CXR Radiology Interpretation Completed By: Radiologist Summary of Radiographic Findings: CXR reveals, per radiologist, IMPRESSION: No radiographic evidence for acute cardiopulmonary abnormality on this portable chest x-ray. ED physician has reviewed this radiology report. - EKG 1146 Cardiac Rate: NL EKG Rhythm: Sinus Rhythm Summary of EKG Findings: An EKG at 11:46 reveals normal sinus rhythm 79. No ST- elevations. ED physician has interpreted this EKG. Re-Evaluation - Re-Evaluation First Eval Re-Evaluation Time: 14:56 Comment: Plan of care was discussed with the patient and understands and agrees. All questions were answered at patient satisfaction. There were no further complaints or concerns. Lung exam before discharge: CTA B/L. Good air exchange. No wheezing or crackles heard. CVS: S1 and S2 present. No murmurs appreciated. Patient is alert and oriented x 3. Patient is hemodynamically stable. Course/Dx - Course Assessment/Plan: Patient is a 29-year-old female who presents to the emergency department with a chief complaint of left arm pain. The patient has a history of trauma couple days ago and since then the patient is having pain. Test results without any significant abnormality except for potassium level of 3.4, and troponin is 0.00. EKG is a normal sinus rhythm without any ST elevations. Chest x-ray impression: No radiographic evidence of acute cardiopulmonary abnormality. In the ED course the patient was given Toradol and a Percocet, after the patient was given these medications the patients symptoms significantly improved. She reports that the pain is only 2 out of 10 and she is able to move her arm without any significant discomfort. Therefore the patient will be discharged home with follow-up with primary care physician and her orthopedic doctor. Next I discussed all the findings and test results with the patient. Patient was instructed to return to the emergency room immediately if any of the symptoms return worsens. Plan of care was discussed with the patient and understands and agrees. All questions were answered at patient satisfaction. There were no further complaints or concerns. Lung exam before discharge: CTA B/L. Good air exchange. No wheezing or crackles heard. CVS: S1 and S2 present. No murmurs appreciated. Patient is alert and oriented x 3. Patient is hemodynamically stable. Patient will be discharged home with follow up PCP in the next 2-3 days - Diagnoses Provider Diagnoses: Left arm pain Discharge ED - Sign-Out/Discharge Documenting (check all that apply): Patient Departure - Discharge - Discharge Plan Condition: Stable Disposition: HOME Patient Education Materials: Arm Pain (ED) Forms: *Work Release Referrals: Homer Monteiro MD [Medical Doctor] - 3 Days Channing MORE,Yemi Crawford [Primary Care Provider] - 3 Days Additional Instructions: FOLLOW UP WITH YOUR PRIMARY CARE PROVIDER AND DR MONTEIRO WITHIN 3 DAYS. RETURN TO THE ED FOR ANY WORSENING OR NEW SYMPTOMS. - Billing Disposition and Condition Condition: STABLE Disposition: Home - Attestation Statements Document Initiated by Alan: Yes Documenting Scribe: Mera Han Provider For Whom Alan is Documenting (Include Credential): Turner Mcnair MD Scribe Attestation: Mera Junior scribed for Turner Mcnair MD on 09/17/19 at 1839. Scribe Documentation Reviewed: Yes Provider Attestation: The documentation as recorded by the Mera ellis accurately reflects the service I personally performed and the decisions made by me, Turner Mcnair MD Status of Scribe Document: Viewed
[2019-09-17] MEDS ORDERED: Albuterol/Ipratropium NEB.SOL* Albuterol 2.5 MG/Ipratropium 0.5 MG 3 ML ONE (12:29)
[2019-09-17] MEDS ORDERED: Albuterol/Ipratropium NEB.SOL* Albuterol 2.5 MG/Ipratropium 0.5 MG 3 ML INH ONE (12:33)
[2019-09-17] MEDS ORDERED: oxyCODONE/Acetamin 5/325 MG* TAB PO ONE (12:47)
[2019-09-17] MEDS ORDERED: Ketorolac INJ* 30 MG/ML 1 ML VIAL IV PUSH ONE (12:47)
[2019-09-17 13:28] LABS: Hematocrit 41 % (35-47); Hemoglobin 13.9 g/dL (12.0-16.0); Mean Corpuscular HGB Conc 34 g/dL (31-36); Mean Corpuscular Hemoglobin 32 pg (27-31); Mean Corpuscular Volume 94 fL (80-97); Platelet Count 326 10^3/uL (150-450); Red Cell Distribution Width 13 % (10-15)
[2019-09-17 13:53] LABS: Albumin 3.6 g/dL (3.2-5.2); Albumin/Globulin Ratio 1.3 (1-3); BUN/Creatinine Ratio 10.4 (8-20); Calcium 8.7 mg/dL (8.6-10.3); EGFR African American 125.9 (>60); EGFR Non-African American 104.1 (>60); Globulin 2.8 g/dL (2-4); Potassium 3.4 mmol/L (3.5-5.0); Total Bilirubin 0.3 mg/dL (0.2-1.0); Total Protein 6.4 g/dL (6.4-8.9)
[2019-09-17 13:57] LABS: ABS Eosinophils 0.2 10^3/ul (0-0.6); ABS Lymphocytes 5.1 10^3/ul (1.0-4.8); ABS Monocytes 0.8 10^3/ul (0-0.8); ABS Neutrophils 3.9 10^3/ul (1.5-7.7); Eosinophil % 1.7 %; Lymphocyte % 50.8 %; Nucleated Red Blood Cells % 0.1
[2019-09-17 13:58] LABS: CKMB ng/mL 0.9 ng/mL (0.6-6.3)
[2019-09-17] MEDS ORDERED: Potassium Chlor TAB* 20 MEQ TAB.ER PO ONE (14:57)
[2019-09-17 15:01] LABS: Urine Appearance Clear; Urine Color Yellow
[2019-09-17 15:02] LABS: Urine Bilirubin Negative (Negative); Urine Blood Negative (Negative); Urine Glucose Negative (Negative); Urine Ketones Negative (Negative); Urine Nitrite Negative (Negative); Urine Protein Negative (Negative); Urine Urobilinogen Negative (Negative)
[2019-09-17 15:22] VITALS: BP 103/57
== END 2019-09-17 15:17 | disposition home or self-care (01) ==
LOC: ED 11:40
DX: M25.512 Pain in left shoulder (principal); R20.0 Anesthesia of skin; R07.89 Other chest pain; Z88.1 Allergy status to other antibiotic agents; Z88.3 Allergy status to other anti-infective agents; Z88.5 Allergy status to narcotic agent; Z87.891 Personal history of nicotine dependence
CPT/HCPCS: 36415; 71045; 80053; 81003; 82553; 83605; 83880; 84484; 85025; 85060; 93005; 96374; 99282; A9270-GY; J1885

== ENCOUNTER 2019-11-30 16:57 | Emergency (ER) | payer OTHER ==
--- NOTE | 2019-11-30 17:35 | ED ---
Upper Extremity Pain - HPI Summary HPI Summary: The patient is a 29 y/o female presenting to [facility] with a chief complaint of left shoulder pain onset this afternoon. She reports that she had surgery last week for infected hardware from biceps tendon repair. Tonight, she was giving her son a bath when the rug underneath her slipped, causing her to fall forward. She is now experiencing pain in the shoulder as well as intermittent paresthesias of the hand. Patient states she's had these intermittent paresthesias with her prior shoulder injury. Symptoms currently rated 10/10 in severity. Movement aggravates the pain. Dr. Romero performed the surgery. PMHx : anemia, asthma. Current smoker, occasional EtOH, marijuana use. Medications reviewed. Allergies noted. - History of Current Complaint Chief Complaint: EDShoulderClavicleInj Stated Complaint: FALL PER PT Time Seen by Provider: 11/30/19 17:06 Hx Obtained From: Patient Hx Last Menstrual Period: 04/01/16 Mechanism Of Injury: Fall From A Standing Position Onset/Duration: Started Minutes Ago, Still Present Timing: Constant Severity Initially: Severe Severity Currently: Severe Pain Location: Shoulder - left Character: Aching Aggravating Factor(s): Movement Alleviating Factor(s): Rest Associated Signs & Symptoms: Positive: Numbness/Tingling - left hand - Allergies/Home Medications Allergies/Adverse Reactions: Allergies Allergy/AdvReac Type Severity Reaction Status Date / Time cephalexin Allergy Mild Hives Verified 11/30/19 17:04 meperidine Allergy Mild Hives Verified 11/30/19 17:04 povidone-iodine Allergy Hives Verified 11/30/19 17:04 [From Betadine] soap [From Betadine] Allergy Hives Verified 11/30/19 17:04 Home Medications: Home Medications Amoxicillin PO (*) [Amoxicillin 500 MG CAP*] 500 mg PO Q12H 11/30/19 [History Confirmed 11/30/19] Linezolid 600 mg PO BID 11/30/19 [History Confirmed 11/30/19] Ondansetron HCl [Zofran 4 MG TAB] 4 mg PO Q6H PRN 11/30/19 [History Confirmed ] PMH/Surg Hx/FS Hx/Imm Hx Endocrine/Hematology History: Reports: Hx Anemia - history of, not recent Denies: Hx Anticoagulant Therapy, Hx Diabetes, Hx Thyroid Disease Cardiovascular History: Denies: Hx Hypertension, Hx Pacemaker/ICD, Other Cardiovascular Problems/ Disorders Respiratory History: Reports: Hx Asthma - sports induced Denies: Hx Chronic Obstructive Pulmonary Disease (COPD), Other Respiratory Problems/Disorders GI History: Denies: Other GI Disorders History: Denies: Hx Dialysis, Hx Renal Disease, Other Problems/Disorders Musculoskeletal History: Reports: Other Musculoskeletal History - Left shoulder 2016-injury- surgery 12/2017 Sensory History: Denies: Hx Cataracts, Hx Contacts or Glasses, Hx Hearing Aid Opthamlomology History: Denies: Hx Cataracts, Hx Contacts or Glasses Neurological History: Reports: Hx Migraine - history of, not recent-had during pregnace Denies: Hx Dementia, Hx Seizures, Other Neuro Impairments/Disorders Psychiatric History: Denies: Hx Panic Disorder, Hx Substance Abuse - Cancer History Hx Chemotherapy: No - Surgical History Surgical History: Yes Surgery Procedure, Year, and Place: T&A, 2 LEFT ANKLE TO REPAIR TENDON, 1 RIGHT ANKLE TO REPAIR TENDON, CYST REMOVED FROM CHIN. TUBAL LIGATION-ABLATION- APPENDIX 12/2016. LEFT SHOULDER 2017 Hx Anesthesia Reactions: Yes - Vomiting - Immunization History Date of Tetanus Vaccine: unk Date of Influenza Vaccine: 11/06/16 Infectious Disease History: No Infectious Disease History: Denies: Hx Clostridium Difficile, Hx Hepatitis, Hx Human Immunodeficiency Virus (HIV), Traveled Outside the [place] in Last 30 Days - Family History Known Family History: Negative: Hypertension - Social History Alcohol Use: Occasionally Alcohol Amount: hx of alcohol abuse Hx Substance Use: No Substance Use Type: Reports: Marijuana Substance Use Comment - Amount & Last Used: daily Hx Tobacco Use: Yes Smoking Status (MU): Current Some Day Smoker Amount Used/How Often: smoked for 2-3 years 1/2 ppd Have You Smoked in the Last Year: No Review of Systems Positive: Other - pain in left shoulder Positive: Numbness - left hand All Other Systems Reviewed And Are Negative: Yes Physical Exam - Summary Physical Exam Summary: Constitutional: Well-developed, Well-nourished, Alert. (-) Distressed Skin: Warm, Dry HENT: Normocephalic; Atraumatic Eyes: Conjunctiva normal Neck: Musculoskeletal ROM normal neck. (-) JVD, (-) Stridor, (-) Nuchal rigidity Cardio: Rhythm regular, rate normal, Heart sounds normal; Intact distal pulses; Radial pulses are 2+ and symmetric. (-) Murmur Pulmonary/Chest wall: Effort normal. (-) Respiratory distress, (-) Wheezes, (-) Rales Abd: Soft, (-) tenderness, (-) Distension, (-) Guarding, (-) Rebound Musculoskeletal: Tenderness of the left clavicle and anterior left shoulder, No tenderness of the left humerus or elbow, Post-operative brace in place with clean dressing to mid-humerus, (-) Edema Lymph: (-) Cervical adenopathy Neuro: Alert, Oriented x3, sensation intact to left hand and wrist. Psych: Mood and affect Normal Triage Information Reviewed: Yes Vital Signs On Initial Exam: Initial Vitals Temp Pulse Resp BP Pulse Ox 98.7 F 75 20 119/93 98 11/30/19 17:01 11/30/19 17:01 11/30/19 17:01 11/30/19 17:01 11/30/19 17:01 Vital Signs Reviewed: Yes Procedures - Sedation Patient Received Moderate/Deep Sedation with Procedure: No Diagnostics - Vital Signs Vital Signs Temp Pulse Resp BP Pulse Ox 11/30/19 17:01 98.7 F 75 20 119/93 98 - Laboratory Lab Statement: Any lab studies that have been ordered have been reviewed, and results considered in the medical decision making process. - Radiology L Clavicle XR Radiology Interpretation Completed By: Radiologist Summary of Radiographic Findings: Impression: 1. Negative for clavicle fracture. 2. Normal acromioclavicular and sternoclavicular joint alignment. 3. Negative for significant arthropathic change. 4. Unremarkable soft tissue contours. Negative for subcutaneous edema. ED physician has reviewed this report. L Shoulder XR Radiology Interpretation Completed By: Radiologist Summary of Radiographic Findings: Impression: No radiographic evidence for traumatic LEFT shoulder injury. ED physician has reviewed this report. Re-Evaluation - Re-Evaluation First Eval Re-Evaluation Time: 18:55 Comment: D/w patient results and d/c plan Course/Dx - Course Course Of Treatment: 29 y/o F p/w L shoulder pain after fall. Recent diagnosis of cellulitis/infected hardware from biceps tendon repair s/p I&D w ortho and removal of hardware. - Exam w ttp L ant shoulder/clavicle. XR neg. Suspect ligamentous injury. Advised to follow up with ortho. - Regarding intermittent paresthesias: patient has strong pulses, full strength of the hand and wrist, and has had similar symptoms in the past. - Diagnoses Provider Diagnoses: Shoulder pain, Fall Discharge ED - Sign-Out/Discharge Documenting (check all that apply): Patient Departure - Patient will be discharged home. - Discharge Plan Condition: Stable Disposition: HOME Patient Education Materials: Shoulder Sprain (ED) Referrals: Channing MORE,Yemi Crawford [Primary Care Provider] - 3 Days Additional Instructions: You were seen in the emergency department for shoulder pain after a fall. Your XRays did not show any broken bones. Please call your orthopedic surgeon to let him know you were here. Please follow up with your primary care doctor in the next 2-3 days and return to the emergency department for worsening pain, numbness or tingling of hand, or concerning symptoms. It was a pleasure taking care of you today. - Billing Disposition and Condition Condition: STABLE Disposition: Home - Attestation Statements Document Initiated by Alan: Yes Documenting Scribe: Erma Barros Provider For Whom Alan is Documenting (Include Credential): Dr. Asmita Santos MD Scribe Attestation: I, Erma Barros, scribed for Dr. Asmita Santos MD on 11/30/19 at 1940. Scribe Documentation Reviewed: Yes Provider Attestation: The documentation as recorded by the Erma ellis accurately reflects the service I personally performed and the decisions made by me, Dr. Asmita Santos MD Status of Scribe Document: Viewed
[2019-11-30 19:26] VITALS: BP 119/83
== END 2019-11-30 19:00 | disposition home or self-care (01) ==
LOC: ED 16:57
DX: M25.512 Pain in left shoulder (principal); W01.0XXA Fall on same level from slipping, tripping and stumbling without subsequent striking against object, initial encounter; Y92.002 Bathroom of unspecified non-institutional (private) residence as the place of occurrence of the external cause; F17.200 Nicotine dependence, unspecified, uncomplicated; Z98.51 Tubal ligation status; Z88.1 Allergy status to other antibiotic agents; Z88.5 Allergy status to narcotic agent; Z88.8 Allergy status to other drugs, medicaments and biological substances
CPT/HCPCS: 99282